=== PATIENT | male | born 1960 | race Caucasian/White ===

== ENCOUNTER 2020-04-07 17:16 | Inpatient (IN) | payer OTHER, SELFPAY ==
[~2020-04-07 17:16] MED LIST: Iopamidol-370 76% 500 ML 1 ML ONE
[2020-04-07 17:46] LABS: #Basophils 0.1 thou/uL (0.0-0.2); #Eosinphils 0.1 thou/uL (0.0-0.7); #Lymphocytes 1.2 thou/uL (1.20-3.40); #Monocytes 0.6 thou/uL (0.11-0.59); #Neutrophils 13.9 thou/uL (1.40-6.50); %Basophils 0.3 % (0.0-1.0); %Eosinophils 0.4 % (0.0-10.0); %Lymphocytes 7.6 % (21.0-51.0); %Neutrophils 87.7 % (42.0-75.0); Hemoglobin 11.7 g/dL (14.0-18.0); Mean Corpuscular HGB CONC 32.2 g/dL (32.0-36.0); Mean Corpuscular Hemoglobin 26.7 pg (27.0-31.0); Mean Corpuscular Volume 83.1 fL (78.0-98.0); Mean Platelet Volume 7.1 fL (7.4-10.4); Platelet Count 514 thou/uL (130-400); Red Blood Cell (RBC) Count 4.37 mill/uL (4.70-6.10); White Blood Cell (WBC) Count 15.8 thou/uL (4.8-10.8)
[2020-04-07 18:06] LABS: ALT (SGPT) 13 U/L (8-55); AST (SGOT) 7 U/L (5-34); Albumin 2.9 g/dL (3.5-5.0); Alkaline Phosphatase 150 U/L (40-110); Anion Gap 15 mmol/L (10-20); BUN (Urea Nitrogen) 7 mg/dL (8.4-25.7); Bilirubin, Total 0.3 mg/dL (0.2-1.2); Calc. Creatinine Clearance 0 mL/min (70-130); Calcium 8.1 mg/dL (7.8-10.44); Carbon Dioxide 26 mmol/L (22-29); Chloride 91 mmol/L (98-107); Estimated GFR-MDRD Greater than 90; Globulin 2.8 g/dL (2.4-3.5); Glucose 550 mg/dL (70-105); Protein, Total 5.7 g/dL (6.0-8.3); Sodium 129 mmol/L (136-145)
[2020-04-07 18:12] LABS: Potassium 2.8 mmol/L (3.5-5.1)
[2020-04-07] MEDS ORDERED: Potassium Chloride 20 MEQ TAB ONE (18:55)
[2020-04-07] MEDS ORDERED: D5 0.9% NS w/ 20 mEq KCl 1,000 ML IV SCH (19:30)
--- NOTE | 2020-04-07 19:56 | RAD ---
PORTABLE CHEST: 04/07/20 HISTORY: Right sided pain. Heart size is within normal limits. Mediastinal structures appear unremarkable. The lungs are clear o f any infiltrative process. IMPRESSION: No active intrathoracic disease. POS: OFF
[2020-04-07 21:02] LABS: Lactic Acid 1.1 mmol/L (0.5-2.2)
[2020-04-07] MEDS ORDERED: cloNIDine 0.1 MG TAB ONE (21:06)
[2020-04-07] MEDS ORDERED: Cefepime 2 GM VIAL ONE (21:06)
[2020-04-07] MEDS ORDERED: metroNIDAZOLE 500 MG/100 ML BAG ONE (21:15)
[2020-04-07] MEDS ORDERED: Morphine 4 MG/ML VIAL ONE (21:18)
[2020-04-07 21:22] LABS: Bacteria/HPF None Seen HPF (None Seen); Bilirubin Negative (Negative); Blood, Urine Negative (Negative); Clarity Clear (Clear); Glucose, Urine (Dipstick) Greater than 1000 mg/dL (Negative); Ketone, Urine Negative (Negative); Leukocyte Negative Leu/uL (Negative); Nitrite Negative (Negative); Protein, Urine (Dipstick) 30 mg/dL (Neg-Trace); RBC/HPF None Seen HPF (0-3); Specific Gravity, Urine 1.036 (1.002-1.036); Squamous Epithelial None Seen HPF (0-3); Urobilinogen Normal mg/dL (Less than 2); WBC/HPF None Seen HPF (0-3); pH, Urine 6.5 (5.0-9.0)
--- NOTE | 2020-04-07 21:53 | CT ---
CT ABDOMEN AND PELVIS PERFORMED WITH CONTRAST ENHANCEMENT: 04/07/20 HISTORY: Right lower quadrant pain. Lung bases are clear of infiltrates. The liver shows fatty change. The spleen is within normal limits of size. Pancreas is atrophic, parti cularly the body and tail region. The gallbladder has been removed. Right and left adrenal glands and right and left kidneys are normal in size. No significant periaorti c or mesenteric lymphadenopathy. Stomach is difficult to assess particularly the antrum region. This may just be related to underdistention. There is a very unusual small bowel pattern. Within some of the small bowel loops the oral contrast is along the periphery without enhancement of the central por tion. This just be some sort of uneven mixing; however, in addition there is small bowel fold promine nce and some areas where there does appear to be small bowel wall thickening. There is also a fairly prominent intussusception in the left upper abdomen. In addition to these findings, there is what jean pierre ears to be some bowel wall thickening of the right colon, although some of this may be stool. The tra nsverse colon is mildly distended with air without obvious bowel wall thickening but there is also wa ll thickening involving the splenic flexure region over a fairly long segment extending from the lombardi sverse colon into the proximal descending colon. No pneumatosis. The bowel is nondistended below this level. There is free fluid present within the abdomen. Some minimal fat stranding within the mesente kojo fat. The bladder is distended. No pelvic lymphadenopathy or mass. IMPRESSION: 1. Wall thickening of the colon. This definitively involves the splenic flexure regions, beginni ng within the transverse colon and extending into the proximal descending colon. This could indicate colitis. It also could be an indication of a mass in this region. There is also what is possibly thic kening to the right colon bowel wall but there is a considerable amount of unopacified stool which ma y be confusing this picture. 2. Abnormal small bowel pattern. There is a proximal intussusception more prominent than the typ ical transient intussusception but not associated with a great deal of obstruction. Unusual pattern o f the oral contrast and nonopacified intraluminal contents of the small bowel. This is probably relat ed to an uneven mixing of the oral contrast related to somewhat the patient has eaten. However, in ad dition, the small bowel folds are accentuated and there is areas of small bowel wall thickening. Two main entities to consider would be colitis for the changes within the colon versus mass and some type of enteritis in addition to the intussusception of the small bowel. These findings were discussed wi florentin Rg. 3. Atrophic pancreas. 4. Post cholecystectomy change. 5. Fatty liver. POS: OFF
[2020-04-07] MEDS ORDERED: Dextrose 5% in Water 1,000 ML IV PRN (22:10)
[2020-04-07] MEDS ORDERED: Dextrose 50% Abboject 50 ML SYRINGE SLOW IVP PRN (22:10)
[2020-04-07] MEDS ORDERED: Sodium Chloride 0.9% 1,000 ML IV SCH (22:15)
[2020-04-07 22:37] LABS: Hemoglobin A1c Greater than 14.0 % (4.0-6.0)
--- NOTE | 2020-04-07 23:01 | PDOC.EVN ---
Event Note - Event Note Event Note: [id number] HP dicated
[2020-04-08] MEDS: NS 0.9% w/ 20 MEQ KCL 1,000 ML/1,000 ML BAG IV SCH ×3 (00:29→14:27)
[2020-04-08] MEDS ORDERED: Ketorolac Tromethamine 30 MG/ML VIAL IVP SCH (00:45)
--- NOTE | 2020-04-08 02:00 | HP ---
CHIEF COMPLAINT: Abdominal pain. HISTORY OF PRESENT ILLNESS: Mr. To is a 59-year-old male with past medical history of diabetes mellitus, not on any medications, cigarette smoker, presents to the emergency room with abdominal pain that has been going on for some time treated with nausea, vomiting. The patient stated that he is diabetic, but he is not taking medications for diabetes. Workup in the emergency room, patient was found to be hypokalemic with a potassium of , hyperglycemic with a glucose of 550, anion gap is 15. On imaging studies, the patient was found to have a ? colonic mass, enteritis and ? intussusception. The patient was started on IV antibiotics, IV fluids, insulin, surgeon is being consulted. The patient is being admitted to hospital for further management. PAST MEDICAL HISTORY: 1. Diabetes mellitus. 2. Cigarette smoker. PAST SURGICAL HISTORY: Cholecystectomy. FAMILY HISTORY: Reviewed, noncontributory. SOCIAL HISTORY: The patient smokes about a pack a day. Denies drug abuse. FAMILY HISTORY: Reviewed and noncontributory. HOME MEDICATIONS: None. ALLERGIES: NO KNOWN ALLERGIES. REVIEW OF SYSTEMS: Review of 14 systems negative except what is mentioned in the history of present illness. PHYSICAL EXAMINATION: GENERAL: The patient is awake, alert, in moderate distress. VITAL SIGNS: Blood pressure is 140/80, heart rate is 90, respiratory rate is 14, temperature is 98.6. HEAD AND NECK: Normocephalic, atraumatic. NECK: Supple. No JVD. CHEST: Fair bilateral air entry. HEART: S1, S2. Regular. ABDOMEN: Soft, distended, tender. NEUROLOGIC: Awake, alert, oriented x3. No focal deficits. PSYCHIATRIC: Unable to assess. EXTREMITIES: No clubbing or cyanosis. LABORATORY DATA: WBC 15.8, hemoglobin 11.7, platelets 514. Sodium was 129, potassium 2.8, glucose of 550, BUN 7, creatinine 0.7, alkaline phosphatase 150. ASSESSMENT AND PLAN: 1. Acute abdominal pain. 2. Diabetes mellitus. 3. Hyperglycemia. 4. Colonic mass. 5. Enteritis? 6. Intussusception? 7. Cigarette smoker. 8. Weight loss. 9. Hypokalemia. PLAN: 1. Admit. 2. Keep n.p.o. 3. IV fluids. 4. Replace potassium. 5. Pain management. 6. Continue with antibiotics for now. 7. Surgeon consulted for evaluation and further management. 8. We will consult GI for evaluation and further recommendations. 9. Reconcile home medications. 10. DVT prophylaxis as appropriate. 11. Expected length of stay, 2 midnights or more. Job ID: [id number]
[2020-04-08] MEDS: Morphine 4 MG/ML VIAL SLOW IVP PRN ×3 (04:26→20:44)
[2020-04-08 05:55] LABS: #Basophils 0.1 thou/uL (0.0-0.2); #Eosinphils 0.2 thou/uL (0.0-0.7); #Lymphocytes 1.8 thou/uL (1.20-3.40); #Monocytes 0.8 thou/uL (0.11-0.59); #Neutrophils 12.4 thou/uL (1.40-6.50); %Basophils 0.4 % (0.0-1.0); %Eosinophils 1.2 % (0.0-10.0); %Lymphocytes 11.7 % (21.0-51.0); %Neutrophils 81.7 % (42.0-75.0); Hemoglobin 9.9 g/dL (14.0-18.0); Mean Corpuscular Hemoglobin 26.6 pg (27.0-31.0); Mean Corpuscular Volume 83.1 fL (78.0-98.0); Mean Platelet Volume 7.3 fL (7.4-10.4); Platelet Count 486 thou/uL (130-400); RBC Distribution Width 13.9 % (11.5-14.5); White Blood Cell (WBC) Count 15.1 thou/uL (4.8-10.8)
[2020-04-08] MEDS: metroNIDAZOLE 500 MG in Premix Bag 1 BAG IVPB SCH ×3 (05:57→22:09)
[2020-04-08] MEDS: Insulin Regular 300 UNITS/3 ML VIAL SC PRN ×2 (06:00→17:06)
[2020-04-08 06:18] LABS: ALT (SGPT) 12 U/L (8-55); AST (SGOT) 13 U/L (5-34); Albumin 2.4 g/dL (3.5-5.0); Alkaline Phosphatase 117 U/L (40-110); Anion Gap 11 mmol/L (10-20); BUN (Urea Nitrogen) 9 mg/dL (8.4-25.7); Bilirubin, Total 0.2 mg/dL (0.2-1.2); Calc. Creatinine Clearance 99 mL/min (70-130); Calcium 7.2 mg/dL (7.8-10.44); Carbon Dioxide 23 mmol/L (22-29); Chloride 100 mmol/L (98-107); Estimated GFR-MDRD Greater than 90; Globulin 2.4 g/dL (2.4-3.5); Glucose 327 mg/dL (70-105); Potassium 3.6 mmol/L (3.5-5.1); Protein, Total 4.8 g/dL (6.0-8.3); Sodium 130 mmol/L (136-145)
[2020-04-08] MEDS: Cefepime 1 GM in Sodium Chloride 0.9% 100 ML IVPB SCH ×2 (08:01→20:37)
[2020-04-08] MEDS: Famotidine/PF 20 mg/2ml Vial SLOW IVP SCH ×2 (08:02→20:38)
[2020-04-08] MEDS ORDERED: FLU VACC QS2020-21(6MOS UP)/PF 60 MCG/0.5 ML SYRINGE IM ONE (09:00)
--- NOTE | 2020-04-08 11:14 | RAD ---
XR Abdomen 1 View/KUB History: Evaluate for contrast progression Comparison: CT prior day Findings: Contrast appears to transit into the colon and rectum. There continue be dilated loops of b owel including large and small bowel. Impression: Progressive contrast transit into the colon with concern for splenic flexure mass. Colono scopy evaluation recommended.
--- NOTE | 2020-04-08 11:22 | PDOC.GSCN ---
Surgery Consult: HPI - Consult details Date: 04/08/20 Time: 11:20 History of present illness: 04/08/20 11:20 Chief complaint-my abdomen hurts History of present illness-the patient is a 59-year-old male who presents to the emergency room with worsening abdominal pain. This is mostly located on the right-hand side and is crampy in nature. The cramping has become more constant. This is been going on for approximately the last 2 weeks. Pain can get up to 7 out of 10. No radiation necessarily. He feels like he needs to grab the side of his abdomen in order to get out of bed. He has had some occasional nausea that has been progressive lately. He is still eating. Still passing flatus and having bowel movements. No blood in his stool. Patient d enies ever having a colonoscopy before. He endorses a 50 pound weight loss over the last 2 years. Initially, secondary to his diabetes, he was happy that he was losing weight. More recently, his friends and family were becoming concerned about his weight loss. He did not seek evaluation. No change in the caliber of his stool. Surgery Consult: ROS - Review of Systems ROS unobtainable: other (Negative for 10 system, two-point per system other than HPI) Surgery Consult: [facility] Past Medical History: Denies Past Surgical History: Cholecystectomy - Past Family History Pertinent family history: Patient denies any Crohn's or UC. No colon cancer that he knows of - Past Social History Smoking Status: Current every day smoker (1 pack/day) Alcohol Use: rarely Drug Use History: none Surgery Consult: Exam - Vital signs Vital signs: Vital Signs - Most Recent Temp Pulse Resp BP Pulse Ox 98.7 F 94 18 105/70 97 04/08/20 07:31 04/08/20 07:31 04/08/20 07:31 04/08/20 07:31 04/08/20 08:00 - Physical Exam Additional exam: General-cachectic, chronically ill Head-[normocephalic, atraumatic] HEENT- [EOMI], [PERRLA] Neck-[trachea midline, supple] Lungs-[grossly clear to auscultation], [normal air movement] Heart-[regular regular], [no murmurs] Abdomen-[soft], some distention, [nontender], [normal active bowel sounds], some tympany without peritoneal signs Musculosketal-[full range of motion], [no gross deformity], wasted Psychiatric-[good insight, good judgment] Skin-[good turgor, no jaundice] Neuro- [GCS 15], [CN II-XII intact] Surgery Consult: Meds - Medications Medications: Current Medications Dextrose/Water (Dextrose 50% Abboject 50 Ml Syringe) 25 gm SLOW IVP PRN PRN PRN Reason: Hypoglycemia Famotidine (Famotidine/Pf 20 Mg/2ml Vial) 20 mg SLOW IVP Q12HR [facility] Last Admin: 04/08/20 08:02 Dose: 20 mg Documented by: Glucagon (Glucagon 1 Mg/Ml Vial) 1 mg IM PRN PRN PRN Reason: Hypoglycemia Dextrose/Water (D5w) 1,000 mls @ 0 mls/hr IV .Q0M PRN PRN Reason: Hypoglycemia Potassium Chloride/Sodium Chloride (Ns 0.9% W/ 20 Meq Kcl) 1,000 ml in 1,000 mls @ 125 mls/hr IV .Q8H [facility] Last Admin: 04/08/20 07:58 Dose: 1,000 mls Documented by: Cefepime HCl 1 gm/ Sodium (Chloride) 100 mls @ 200 mls/hr IVPB Q12HR [facility] Last Admin: 04/08/20 08:01 Dose: 100 mls Documented by: Metronidazole 500 mg/ Device 100 mls @ 100 mls/hr IVPB Q8HR [facility] Last Admin: 04/08/20 05:57 Dose: 100 mls Documented by: Insulin Human Regular (Insulin Regular 300 Units/3 Ml Vial) 0 units SC .MODERATE SLIDING SC PRN PRN Reason: Moderate Correctional Scale Last Admin: 04/08/20 06:00 Dose: 8 unit Documented by: Morphine Sulfate (Morphine 4 Mg/Ml Vial) 4 mg SLOW IVP Q4H PRN PRN Reason: Severe Pain (7-10) Last Admin: 04/08/20 04:26 Dose: 4 mg Documented by: - Allergies Allergies/Adverse Reactions: Allergies Allergy/AdvReac Type Severity Reaction Status Date / Time No Known Drug Allergies Allergy Verified 04/08/20 01:44 Surgery Consult: Results - Labs Result Diagrams: 04/08/20 05:34 04/08/20 05:34 Lab results: Laboratory Results WBC 15.1 thou/uL (4.8-10.8) H 04/08/20 05:34 RBC 3.70 mill/uL (4.70-6.10) L 04/08/20 05:34 Hgb 9.9 g/dL (14.0-18.0) L 04/08/20 05:34 Hct 30.8 % (42.0-52.0) L 04/08/20 05:34 MCV 83.1 fL (78.0-98.0) 04/08/20 05:34 MCH 26.6 pg (27.0-31.0) L 04/08/20 05:34 MCHC 32.0 g/dL (32.0-36.0) 04/08/20 05:34 RDW 13.9 % (11.5-14.5) 04/08/20 05:34 Plt Count 486 thou/uL (130-400) H 04/08/20 05:34 MPV 7.3 fL (7.4-10.4) L 04/08/20 05:34 Neutrophils % 81.7 % (42.0-75.0) H 04/08/20 05:34 Lymphocytes % 11.7 % (21.0-51.0) L 04/08/20 05:34 Monocytes % 5.0 % (0.0-10.0) 04/08/20 05:34 Eosinophils % 1.2 % (0.0-10.0) 04/08/20 05:34 Basophils % 0.4 % (0.0-1.0) 04/08/20 05:34 Neutrophils # 12.4 thou/uL (1.40-6.50) H 04/08/20 05:34 Lymphocytes # 1.8 thou/uL (1.20-3.40) 04/08/20 05:34 Monocytes # 0.8 thou/uL (0.11-0.59) H 04/08/20 05:34 Eosinophils # 0.2 thou/uL (0.0-0.7) 04/08/20 05:34 Basophils # 0.1 thou/uL (0.0-0.2) 04/08/20 05:34 Sodium 130 mmol/L (136-145) L 04/08/20 05:34 Potassium 3.6 mmol/L (3.5-5.1) 04/08/20 05:34 Chloride 100 mmol/L (98-107) 04/08/20 05:34 Carbon Dioxide 23 mmol/L (22-29) 04/08/20 05:34 Anion Gap 11 mmol/L (10-20) 04/08/20 05:34 BUN 9 mg/dL (8.4-25.7) 04/08/20 05:34 Creatinine 0.63 mg/dL (0.7-1.3) L 04/08/20 05:34 Estimated GFR (MDRD) Greater than 90 04/08/20 05:34 Glucose 327 mg/dL (70-105) H 04/08/20 05:34 POC Glucose 167 mg/dL (70-100) H 04/08/20 09:08 Hemoglobin A1c Greater than 14.0 % (4.0-6.0) H 04/07/20 17:39 Lactic Acid 1.1 mmol/L (0.5-2.2) 04/07/20 20:39 Calcium 7.2 mg/dL (7.8-10.44) L 04/08/20 05:34 Total Bilirubin 0.2 mg/dL (0.2-1.2) 04/08/20 05:34 AST 13 U/L (5-34) 04/08/20 05:34 ALT 12 U/L (8-55) 04/08/20 05:34 Alkaline Phosphatase 117 U/L (40-110) H 04/08/20 05:34 Serum Total Protein 4.8 g/dL (6.0-8.3) L 04/08/20 05:34 Albumin 2.4 g/dL (3.5-5.0) L 04/08/20 05:34 Globulin 2.4 g/dL (2.4-3.5) 04/08/20 05:34 Albumin/Globulin Ratio 1.0 g/dL (1.2-2.2) L 04/08/20 05:34 Urine Color Light-Yellow (Yellow) 04/07/20 20:50 Urine Clarity Clear (Clear) 04/07/20 20:50 Urine pH 6.5 (5.0-9.0) 04/07/20 20:50 Ur Specific Goodrich 1.036 (1.002-1.036) 04/07/20 20:50 Urine Protein 30 mg/dL (Neg-Trace) A 04/07/20 20:50 Urine Glucose (UA) Greater than 1000 mg/dL (Negative) A 04/07/20 20:50 Urine Ketones Negative mg/dL (Negative) 04/07/20 20:50 Urine Blood Negative (Negative) 04/07/20 20:50 Urine Nitrite Negative (Negative) 04/07/20 20:50 Urine Bilirubin Negative (Negative) 04/07/20 20:50 Urine Urobilinogen Normal mg/dL (Less than 2) 04/07/20 20:50 Ur Leukocyte Esterase Negative Maryam/uL (Negative) 04/07/20 20:50 Urine RBC None Seen HPF (0-3) 04/07/20 20:50 Urine WBC None Seen HPF (0-3) 04/07/20 20:50 Ur Squamous Epith Cells None Seen HPF (0-3) 04/07/20 20:50 Urine Bacteria None Seen HPF (None Seen) 04/07/20 20:50 - Radiology Interpretation Other Additional comments: Independently viewed the images of the CT scan as well as the plain film from this morning. CT scan is most concerning for a probable mass at the splenic flexure. The colon proximal to that is dilated. There is also concern of intussusception. Plain film demonstrates passage of contrast into the colon and through the area of concern Surgery Consult: A/P - Problem (1) Colonic mass Current Visit: Yes Code(s): K63.89 - OTHER SPECIFIED DISEASES OF INTESTINE Status: Acute Assessment and Plan: I spoke with Dr. Matthews from gastroenterology today. Given the way that preprocedural Covid test that is going, it will probably be Friday before colonoscopy can be performed. The patient does not obstructed at this point. Unfortunately, given his cachectic nature and 50 pound weight loss over the last 2 years, this is more than likely a malignancy. He has never had a colonoscopy before. It would be nice to differentiate this from enteritis as the patient does have a slightly elevated white blood cell count. I will order a CEA of 1 h as not already been ordered. No evidence of hepatic lesions (2) Diabetes Current Visit: Yes Code(s): E11.9 - TYPE 2 DIABETES MELLITUS WITHOUT COMPLICATIONS Status: Acute Assessment and Plan: Patient is not on medications. Blood glucose was elevated at presentation. Could be a reason for weight loss, but more likely from a colon malignancy. Management per hospitalist service (3) Weight loss Current Visit: Yes Status: Acute Assessment and Plan: 50 pound weight loss in the last 2 years. More than likely related to malignancy. I will order a prealbumin of 1 has not been ordered (4) Tobacco use Current Visit: Yes Code(s): Z72.0 - TOBACCO USE Status: Acute Assessment and Plan: Everyday smoker. This will increase his risk of cardiopulmonary issues if surgery is needed
--- NOTE | 2020-04-08 13:02 | CON ---
DATE OF CONSULTATION: 04/08/2020 CHIEF COMPLAINT: Weakness and abdominal pain. HISTORY OF PRESENT ILLNESS: Mr. To is a 59-year-old man who has had gradual weakness and abdominal discomfort progressively over the last 2 years, which has worsened over the last couple of weeks. He has some diffuse to right lower quadrant aching and abdominal pain, which is fairly constant again over a period of months at least. He has had progressive weight loss over the last 2 years of 50 pounds. He also quit taking any medications for his diabetes a couple years ago. He has not been on any medications lately other than some intermittent ibuprofen or acetaminophen for joint pain. He had no nausea or vomiting. He has had small formed stools daily. No blood in the stool. No diarrhea or constipation. PAST MEDICAL HISTORY: Diabetes mellitus, which has been untreated of the last couple years. He was on metformin prior to that, but was told that it had quit working. He quit following up with physicians about his diabetes after that. PAST SURGICAL HISTORY: Cholecystectomy. FAMILY HISTORY: His brother had brain cancer. His mom had tonsil cancer. SOCIAL HISTORY: He smokes a pack a day. No drugs or alcohol. ALLERGIES: NO KNOWN DRUG ALLERGIES. OUTPATIENT MEDICATIONS: None. REVIEW OF SYSTEMS: Positive for weakness and otherwise negative x10 systems reviewed except as stated in history of present illness. PHYSICAL EXAMINATION: VITAL SIGNS: Temperature 98.7, pulse 94, blood pressure 105/70. GENERAL: He is in no acute distress. Alert and oriented x3. He has significant muscle wasting. HEENT: His eyes have no scleral icterus. Oropharynx is clear without lesions. No cervical or supraclavicular lymphadenopathy. LUNGS: Clear to auscultation bilaterally. HEART: Regular rate and rhythm without murmur. ABDOMEN: Soft. Mild tenderness in the right abdomen without guarding. Bowel sounds are present. His abdomen is mildly distended. EXTREMITIES: No lower extremity edema. LABORATORY DATA: White blood cell count 15.1, hemoglobin 9.9, platelets 486. Creatinine 0.63, glucose 327, bilirubin 0.2. AST 13, ALT 12, alkaline phosphatase 117. Albumin 2.4. His sodium is 136. IMAGING: CT scan of the abdomen and pelvis was performed which shows wall thickening of the colon around the transverse to the proximal descending. Pancreas was atrophic and fatty liver was noted. IMPRESSION: 1. Abnormal CT scan of the abdomen and pelvis showing thickening of the colon around the splenic flexure. Given his muscle wasting and weight loss and abdominal pain, colon cancer is suspected. Ischemic colitis in this area is possible given the location of the CT findings, however, he has had no diarrhea or blood in stool and his pain has been more right sided. I would favor malignancies as more likely possibility. 2. Weight loss. Most likely due to a neoplastic process, however, his untreated diabetes is also a possible etiology. 3. Anemia with low normal MCV. 4. Untreated diabetes mellitus with a hemoglobin A1c over 14. RECOMMENDATIONS: 1. Nasal COVID swab. This will not be expected to be back until tomorrow afternoon. 2. We will plan for a bowel prep tomorrow and colonoscopy on Friday as the COVID test will not be back by tomorrow early time period. 3. Check iron studies. Job ID: [id number]
[2020-04-08 13:20] LABS: Iron 21 ug/dL (65-175); Iron Binding Capacity, Total 196 mcg/dL (261-462)
[2020-04-08 16:29] LABS: SARS-CoV-2 MS2 Positive; SARS-CoV-2 N Gene Negative; SARS-CoV-2 S Gene Negative; SARS-CoV-2 by NAA Not Detected (NotDetected); SARS-CoV-2 orf1ab Negative
--- NOTE | 2020-04-08 17:37 | PDOC.HOSPP ---
- Subjective Encounter Date: 04/08/20 Encounter Time: 17:35 Subjective: Mr. To was seen today in follow-up of abdominal pain, and weight loss. He says he was able to rest last night for the first time in days. He notes severe abdominal pain when he tries to lay down. He was able to keep some yogurt and potato soup down. - Objective Vital Signs & Weight: Vital Signs (12 hours) Temp Pulse Resp BP Pulse Ox 04/08/20 13:12 98.2 F 93 18 118/74 100 04/08/20 08:00 97 04/08/20 07:31 98.7 F 94 18 105/70 97 Weight Admit Weight 122 lb 3.2 oz Weight 122 lb 3.2 oz I&O: 04/07/20 04/08/20 04/09/20 06:59 06:59 06:59 Intake Total 925 Balance 925 Result Diagrams: 04/08/20 05:34 04/08/20 05:34 Additional Labs: Accuchecks 04/08/20 04/08/20 04/08/20 16:47 11:56 09:08 POC Glucose 229 H 92 167 H 04/08/20 04/08/20 04/08/20 04:39 00:44 00:44 POC Glucose 330 H 377 H 377 H Hospitalist ROS - Medication Medications: Active Medications Generic Name Dose Route Start Last Admin Trade Name Freq PRN Reason Stop Dose Admin Famotidine 20 mg 04/08/20 09:00 04/08/20 08:02 Famotidine/Pf 20 Mg/2ml Vial SLOW IVP 20 mg Q12HR PRINCE Administration Potassium Chloride/Sodium Chloride 1,000 ml in 1,000 mls @ 125 mls/hr 04/07/20 22:30 04/08/20 14:27 Ns 0.9% W/ 20 Meq Kcl IV 1,000 mls .Q8H PRINCE Administration Cefepime HCl 1 gm/ Sodium 100 mls @ 200 mls/hr 04/08/20 09:00 04/08/20 08:01 Chloride IVPB 100 mls Q12HR PRINCE Administration Metronidazole 500 mg/ Device 100 mls @ 100 mls/hr 04/08/20 06:00 04/08/20 14:27 IVPB 100 mls Q8HR PRINCE Administration Insulin Human Regular 0 units 04/07/20 22:10 04/08/20 17:06 Insulin Regular 300 Units/3 Ml Vial SC 4 unit .MODERATE SLIDING SC PRN Administration Moderate Correctional Scale Morphine Sulfate 4 mg 04/07/20 23:53 04/08/20 14:26 Morphine 4 Mg/Ml Vial SLOW IVP 4 mg Q4H PRN Administration Severe Pain (7-10) - Exam General Appearance: NAD, ill appearing General - other findings: Cachectic Eye: PERRL, anicteric sclera Heart: RRR, no murmur, no gallops, no rubs, normal peripheral pulses Respiratory: CTAB, no wheezes, no rales, no ronchi, normal chest expansion, no tachypnea, normal percussion Gastrointestinal: soft, non-distended, normal bowel sounds, no palpable masses, no hepatomegaly, tender to palpation (+ diffuse tenderness) Extremities: no cyanosis, no edema Hosp A/P (1) Colonic mass Code(s): K63.89 - OTHER SPECIFIED DISEASES OF INTESTINE Status: Acute (2) Diabetes Code(s): E11.9 - TYPE 2 DIABETES MELLITUS WITHOUT COMPLICATIONS Status: Acute (3) Tobacco use Code(s): Z72.0 - TOBACCO USE Status: Chronic (4) Weight loss Status: Chronic - Plan * Abdominal pain- CT findings noted, area suspicious for intussception and bowel wall thickening * Plan is for Colonoscopy on Friday * Weight loss- with moderate protein calorie malnutrition * DM- continue clear liquids and SSI
[2020-04-09] MEDS: NS 0.9% w/ 20 MEQ KCL 1,000 ML/1,000 ML BAG IV SCH ×3 (03:56→13:44)
[2020-04-09] MEDS: Morphine 4 MG/ML VIAL SLOW IVP PRN ×4 (04:00→20:41)
[2020-04-09] MEDS: Insulin Regular 300 UNITS/3 ML VIAL SC PRN ×2 (04:06→11:00)
[2020-04-09] MEDS: metroNIDAZOLE 500 MG in Premix Bag 1 BAG IVPB SCH ×3 (05:57→22:08)
[2020-04-09] MEDS: Cefepime 1 GM in Sodium Chloride 0.9% 100 ML IVPB SCH ×2 (08:34→20:37)
[2020-04-09] MEDS: Famotidine/PF 20 mg/2ml Vial SLOW IVP SCH ×2 (08:35→20:37)
--- NOTE | 2020-04-09 11:54 | PDOC.HOSPP ---
- Subjective Encounter Date: 04/09/20 Encounter Time: 11:52 Subjective: Mr. To was seen today in follow-up of weight loss and abdominal pain. He says his pain has not been adequately controlled. The current dose of Morphine does not eliminate the pain. - Objective Vital Signs & Weight: Vital Signs (12 hours) Temp Pulse Resp BP Pulse Ox 04/09/20 11:31 98.5 F 86 14 134/87 99 04/09/20 08:00 98.2 F 88 12 108/67 99 04/09/20 00:10 98.7 F 93 16 121/69 99 Weight Admit Weight 122 lb 3.2 oz Weight 122 lb 3.2 oz I&O: 04/08/20 04/09/20 04/10/20 06:59 06:59 06:59 Intake Total 5245 Balance 5245 Result Diagrams: 04/08/20 05:34 04/08/20 05:34 Additional Labs: Accuchecks 04/09/20 04/09/20 04/09/20 10:38 08:51 04:10 POC Glucose 295 H 133 H 181 H 04/09/20 04/08/20 04/08/20 00:52 20:42 16:47 POC Glucose 161 H 284 H 229 H 04/08/20 04/08/20 11:56 00:44 POC Glucose 92 377 H Hospitalist ROS - Medication Medications: Active Medications Generic Name Dose Route Start Last Admin Trade Name Freq PRN Reason Stop Dose Admin Famotidine 20 mg 04/08/20 09:00 04/09/20 08:35 Famotidine/Pf 20 Mg/2ml Vial SLOW IVP 20 mg Q12HR [facility] Administration Potassium Chloride/Sodium Chloride 1,000 ml in 1,000 mls @ 125 mls/hr 04/07/20 22:30 04/09/20 11:48 Ns 0.9% W/ 20 Meq Kcl IV Not Given .Q8H PRINCE Cefepime HCl 1 gm/ Sodium 100 mls @ 200 mls/hr 04/08/20 09:00 04/09/20 08:34 Chloride IVPB 100 mls Q12HR PRINCE Administration Metronidazole 500 mg/ Device 100 mls @ 100 mls/hr 04/08/20 06:00 04/09/20 05:57 IVPB 100 mls Q8HR PRINCE Administration Insulin Human Regular 0 units 04/07/20 22:10 04/09/20 11:00 Insulin Regular 300 Units/3 Ml Vial SC 6 unit .MODERATE SLIDING SC PRN Administration Moderate Correctional Scale - Exam General Appearance: NAD, ill appearing General - other findings: cachectic Eye: PERRL, anicteric sclera Heart: RRR, no murmur, no gallops, no rubs, normal peripheral pulses Respiratory: CTAB, no wheezes, no rales, no ronchi, normal chest expansion Gastrointestinal: soft, non-tender, non-distended, normal bowel sounds, no palpable masses, no hepatomegaly Extremities: no cyanosis, no edema Hosp A/P (1) Colonic mass Code(s): K63.89 - OTHER SPECIFIED DISEASES OF INTESTINE Status: Acute (2) Diabetes Code(s): E11.9 - TYPE 2 DIABETES MELLITUS WITHOUT COMPLICATIONS Status: Acute (3) Tobacco use Code(s): Z72.0 - TOBACCO USE Status: Chronic (4) Weight loss Status: Chronic - Plan * Abdominal pain- CT findings noted, area suspicious for intussception and bowel wall thickening * He continues to have fairly severe pain. He was not able to rest- will adjust his medication regimen, and once the colonoscopy is complete- can switch to MS- Contin or a Fentanyl patch * Weight loss- with moderate protein calorie malnutrition * DM- continue clear liquids and SSI
[2020-04-09] MEDS ORDERED: Morphine 4 MG/ML VIAL SLOW IVP SCH (12:00)
--- NOTE | 2020-04-09 16:32 | PDOC.GSPN ---
Surgery Progress Note: Subj - Subjective Narrative: Chief complaint-still having some crampy pain History of present illness-the patient is hospital day 2 for a splenic flexure abnormality. He has a history of weeks of increasing crampy abdominal pain. He states he is still passing flatus. Still having bowel movements. He is ambulating. His pain is still well localized. Mostly on the right side of the abdomen. Can get up to 6 out of 10. Crampy. Nonradiating. Review of systems negative for 10 system, two-point per system other than HPI Surgery Progress Note: Obj - Vital signs Vital signs: Vital Signs - Most Recent Temp Pulse Resp BP Pulse Ox 98.5 F 86 14 134/87 99 04/09/20 11:31 04/09/20 11:31 04/09/20 11:31 04/09/20 11:31 04/09/20 11:31 - Physical Exam Additional exam: General-cachectic, no acute distress Head-[normocephalic, atraumatic] HEENT- [EOMI], [PERRLA] Neck-[trachea midline, supple] Lungs-[grossly clear to auscultation], [normal air movement] Heart-[regular regular], [no murmurs] Abdomen-[soft], mildly distended, minimal tenderness to deep palpation, [normal active bowel sounds] Musculosketal-wasted extremities, [no gross deformity] Psychiatric-[good insight, good judgment] Skin-[good turgor, no jaundice] Neuro- [GCS 15], [CN II-XII intact] Surgery Progress Note: Results - Labs Result Diagrams: 04/08/20 05:34 04/08/20 05:34 Lab results: Laboratory Results - last 12 hr 04/09/20 04/09/20 08:51 10:38 POC Glucose 133 H 295 H - Radiology Interpretation Other Additional comments: Independently viewed the images of the CT scan as well as the plain film from this morning. CT scan is most concerning for a probable mass at the splenic flexure. The colon proximal to that is dilated. There is also concern of intussusception. Plain film demonstrates passage of contrast into the colon and through the area of concern Surgery Progress Note: A/P - Problem (1) Colonic mass Current Visit: Yes Code(s): K63.89 - OTHER SPECIFIED DISEASES OF INTESTINE Status: Acute Assessment and Plan: CEA was normal. I explained to the patient that this does not mean he does not have colon cancer. His prealbumin is low. Unfortunately, he is on a clear liquid diet preparing for his bowel prep tonight for his colonoscopy tomorrow. It does not sound like he is obstructed at this point. We discussed that surgical intervention will be based on the colonoscopy findings. He understands that he will be switched over to a different surgeon tomorrow as I rotate off call. (2) Diabetes Current Visit: Yes Code(s): E11.9 - TYPE 2 DIABETES MELLITUS WITHOUT COMPLIC ATIONS Status: Acute Assessment and Plan: Glucoses are improving. Continue glucose control as this is important for reduction of surgical site infections and perioperative complications (3) Weight loss Current Visit: Yes Status: Chronic (4) Tobacco use Current Visit: Yes Code(s): Z72.0 - TOBACCO USE Status: Chronic
[2020-04-09] MEDS ORDERED: GoLYTELY 4,000 ml Bottle PO SCH (17:00)
--- NOTE | 2020-04-09 18:11 | PRG ---
DATE OF SERVICE: 04/09/2020 SUBJECTIVE: Mr. To has no acute complaints today. He is tolerating his clear liquid diet well. OBJECTIVE: VITAL SIGNS: Temperature 98.5, pulse 86, and blood pressure 134/87. GENERAL: He is in no acute distress. Alert and oriented x3. ABDOMEN: Tenderness in the right lower quadrant without guarding. Bowel sounds are present. EXTREMITIES: 1+ pitting lower extremity edema. IMPRESSION: 1. Possible colon mass at splenic flexure by CT. 2. Weight loss. 3. Anemia of chronic disease. 4. Untreated diabetes mellitus. PLAN: He is on the schedule for colonoscopy for tomorrow. Job ID: [id number]
[2020-04-10] MEDS: NS 0.9% w/ 20 MEQ KCL 1,000 ML/1,000 ML BAG IV SCH ×3 (00:16→18:02)
[2020-04-10] MEDS: Morphine 4 MG/ML VIAL SLOW IVP PRN ×3 (00:16→21:46)
[2020-04-10] MEDS: metroNIDAZOLE 500 MG in Premix Bag 1 BAG IVPB SCH ×3 (05:46→21:20)
[2020-04-10] MEDS ORDERED: PROPOFOL 200 MG/20 ML VIAL ONE (09:25)
[2020-04-10] MEDS ORDERED: CEFAZOLIN 1 GM VIAL ONE (09:26)
[2020-04-10] MEDS: Cefepime 1 GM in Sodium Chloride 0.9% 100 ML IVPB SCH ×2 (10:04→21:19)
[2020-04-10] MEDS: Famotidine/PF 20 mg/2ml Vial SLOW IVP SCH ×2 (10:05→21:16)
--- NOTE | 2020-04-10 12:48 | OP ---
DATE OF PROCEDURE: 04/10/2020 WORM RAISER SURGEON: None. PROCEDURES PERFORMED: Colonoscopy with biopsies and snare polypectomy. INDICATIONS: 1. Abnormal weight loss. 2. Right-sided abdominal pain. 3. Abnormal CT scan, showing colon thickening of the splenic flexure, suggestive of possible malignancy. 4. The patient has never had a colonoscopy in the past. MEDICATIONS: See Anesthesia record. FINDINGS: After discussion of the risks, benefits, and alternatives of the procedure, informed consent was obtained and witnessed. Pre-endoscopic cardiopulmonary examination was satisfactory. Time-out was performed before sedation was achieved. Sedation was achieved with Anesthesia assistance in the endoscopy unit. Digital rectal exam was performed, which was unremarkable. A Pentax adult colonoscope was inserted into the anus and passed forward in the usual fashion. The endoscope was passed forward to a distance of 40 cm from the anal verge. At this point, there was a large circumferential near obstructing mass, which was multilobulated with several areas of friability and shallow ulceration. This was nearly obstructing as I was unable to advance the colonoscope more proximal to the mass. Biopsies were obtained. I injected 3 mL of submucosal tattoo ink just distal to the lesion. The colonoscope was then slowly withdrawn in a gradual and circumferential manner with careful examination of the distal colonic mucosa. Examination of this segment of the colon was adequate. In the rectum, there was a 7-mm sessile polyp. This was completely removed with hot snare and retrieved for pathology. Retroflexion in the rectum demonstrated small internal hemorrhoids. The colonoscope was completely withdrawn and the patient allowed to recover. The patient tolerated the procedure well. There were no immediate postprocedure complications. IMPRESSION: 1. Near-obstructing circumferential mass at 40 cm, likely malignant. Biopsied. Tattooed distal to the lesion. 2. Unable to advance the endoscope more proximal than 40 cm. 3. 7-mm rectal polyp, hot snared and retrieved. 4. Internal hemorrhoids. RECOMMENDATIONS: 1. Follow up pathology on the biopsies. 2. General Surgery is already following. I have notified Dr. Westfall of the findings. The patient will need resection, and I anticipate likely Oncology consultation once malignancy is confirmed on histology. 3. Colonoscopy will need to be repeated at 1-year interval. Please call back anytime with questions or concerns. Job ID: [id number]
[2020-04-10] MEDS: Insulin Regular 300 UNITS/3 ML VIAL SC PRN ×2 (14:36→18:30)
--- NOTE | 2020-04-10 15:27 | PDOC.FMACP ---
Advance Care Planning - Problem (1) Palliative care encounter Status: Acute Code(s): Z51.5 - ENCOUNTER FOR PALLIATIVE CARE (2) Colonic mass Status: Acute Code(s): K63.89 - OTHER SPECIFIED DISEASES OF INTESTINE (3) Diabetes Status: Acute Code(s): E11.9 - TYPE 2 DIABETES MELLITUS WITHOUT COMPLICATIONS - Note Participants: patient, family, palliative care Summary: Palliative Care addressed Advanced Care Planning. The diagnosis, prognosis and goals of care were discussed. Appropriate forms and documentation to accomplish the goals of care were discussed. All questions were answered. Mr To elected to complete an MPOA as well as Directive to Physician. Original and copies were given to patient as well as copies placed on patient chart for medical records. Please also refer to Palliative Care notes in note section. Time Spent (mins): 15
[2020-04-10] MEDS ORDERED: Naloxone HCl 0.4 mg/ml Vial IV PRN (16:10)
--- NOTE | 2020-04-10 16:10 | PDOC.HOSPP ---
- Subjective Encounter Date: 04/10/20 Encounter Time: 16:07 Subjective: Mr. To was seen today in follow-up of colon mass. He continues to have some pain, but admits it is a little better today than yesterday. - Objective Vital Signs & Weight: Vital Signs (12 hours) Temp Pulse Resp BP Pulse Ox 04/10/20 15:48 97.6 F 78 18 123/85 93 L 04/10/20 08:00 96 04/10/20 07:12 98.5 F 92 20 118/75 96 Weight Admit Weight 122 lb 3.2 oz Weight 122 lb 3.2 oz I&O: 04/09/20 04/10/20 04/11/20 06:59 06:59 06:59 Intake Total 5245 2900 Balance 5245 2900 Result Diagrams: 04/08/20 05:34 04/08/20 05:34 Additional Labs: Accuchecks 04/10/20 04/10/20 04/10/20 15:51 13:42 04:12 POC Glucose 340 H 307 H 169 H 04/10/20 04/09/20 04/09/20 00:14 20:11 16:42 POC Glucose 222 H 214 H 113 H Hospitalist ROS - Medication Medications: Active Medications Generic Name Dose Route Start Last Admin Trade Name Freq PRN Reason Stop Dose Admin Famotidine 20 mg 04/08/20 09:00 04/10/20 10:05 Famotidine/Pf 20 Mg/2ml Vial SLOW IVP 20 mg Q12HR PRINCE Administration Potassium Chloride/Sodium Chloride 1,000 ml in 1,000 mls @ 125 mls/hr 04/07/20 22:30 04/10/20 07:21 Ns 0.9% W/ 20 Meq Kcl IV Not Given .Q8H PRINCE Cefepime HCl 1 gm/ Sodium 100 mls @ 200 mls/hr 04/08/20 09:00 04/10/20 10:04 Chloride IVPB 100 mls Q12HR PRINCE Administration Metronidazole 500 mg/ Device 100 mls @ 100 mls/hr 04/08/20 06:00 04/10/20 14:35 IVPB 100 mls Q8HR PRINCE Administration Insulin Human Regular 0 units 04/07/20 22:10 04/10/20 14:36 Insulin Regular 300 Units/3 Ml Vial SC 8 unit .MODERATE SLIDING SC PRN Administration Moderate Correctional Scale Morphine Sulfate 4 mg 04/09/20 11:52 04/10/20 14:32 Morphine 4 Mg/Ml Vial SLOW IVP 4 mg Q3HR PRN Administration Severe Pain (7-10) - Exam Eye: PERRL, anicteric sclera Respiratory: CTAB, no wheezes, no rales, no ronchi, normal chest expansion, no tachypnea, normal percussion Gastrointestinal: soft, non-distended, normal bowel sounds, no palpable masses, no hepatomegaly, tender to palpation Extremities: no cyanosis, no edema Hosp A/P (1) Colonic mass Code(s): K63.89 - OTHER SPECIFIED DISEASES OF INTESTINE Status: Acute (2) Diabetes Code(s): E11.9 - TYPE 2 DIABETES MELLITUS WITHOUT COMPLICATIONS Status: Acute (3) Tobacco use Code(s): Z72.0 - TOBACCO USE Status: Chronic (4) Weight loss Status: Chronic - Plan * Abdominal pain- Colonoscopy findings noted- he has a large mass at about 40cm, which has almost complete obstruction of the bowel lumen. * Surgery has been consulted * Will start a Fentanyl Patch today, and continue Morphine IV for breakthrough pain * Weight loss- with moderate protein calorie malnutrition * DM- continue clear liquids and SSI
[2020-04-10] MEDS: Lorazepam 2 MG/ML VIAL SLOW IVP PRN (18:23)
[2020-04-10 18:50] LABS: PTT 23.1 sec (22.9-36.1); Prothrombin Time 13.7 sec (12.0-14.7)
[2020-04-10] MEDS ORDERED: cefOXitin 2 GM in Sodium Chloride 0.9% 100 ML IVPB SCH (19:15)
--- NOTE | 2020-04-10 19:46 | PRG ---
DATE OF SERVICE: 04/10/2020 SUBJECTIVE: Mr. To is a 59-year-old man with 50-pound weight loss over the last two years. The patient was admitted with complaint of right lower quadrant abdominal pain. Workup included a CT scan of the abdomen and pelvis, which revealed soft tissue mass in the splenic flexure of the colon. The patient underwent colonoscopy today finding any obstructive mass at 40 cm. The endoscopist was unable to pass this mass as a result. The remainder of the colon was not evaluated. At the time of my evaluation, the patient is awake and alert. He complains of right lower quadrant abdominal pain though not as severe as it was when he first presented. He had loose bowel movements from the bowel prep. OBJECTIVE: VITAL SIGNS: Include blood pressure 123/85, pulse 78, respiratory rate is 18, temperature 97.6 degrees Fahrenheit, and oxygen saturation is 96% on room air. HEART: Reveals regular rate and rhythm. LUNGS: Clear to auscultation bilaterally. ABDOMEN: Soft with right lower quadrant tenderness to palpation. He has no peritoneal signs on examination. LABORATORY FINDINGS: Include a CBC, which was obtained on 04/08/2020 with 15,001 white blood cells, hemoglobin and hematocrit 9.9 and 30.8 respectively. Platelet count 486,000. IMPRESSION: Near obstructing left colon mass, likely malignant neoplasm. RECOMMENDATION AND PLAN: Exploratory laparotomy with partial colectomy and primary anastomosis. I have advised the patient of the possibility of subtotal colectomy if this is warranted by gross examination intraoperatively, especially given inability to evaluate the rest of the right colon via endoscopy. The patient is also informed the risks and benefits of proposed surgery to include, but not limited to bleeding, infection, injury to bowel or surrounding structures. Additionally, there is a risk for postoperative anastomotic leak, which might require reoperation. The patient indicates understanding of information provided. I have answered his questions. This information was provided to the patient in the presence of his nurse. He has granted consent for the surgical intervention. I did review the consultation performed by my partner, Dr. Altaf Etienne and also reviewed this patient's history and physical. I have ordered type and screen and coagulation studies in preparation for this surgical intervention. Job ID: [id number]
[2020-04-10] MEDS: Neomycin 500 mg Tablet PO SCH (21:17)
[2020-04-11] MEDS: NS 0.9% w/ 20 MEQ KCL 1,000 ML/1,000 ML BAG IV SCH ×3 (05:38→19:32)
[2020-04-11] MEDS: Neomycin 500 mg Tablet PO SCH (05:39)
[2020-04-11] MEDS: metroNIDAZOLE 500 MG in Premix Bag 1 BAG IVPB SCH ×2 (05:39→21:01)
[2020-04-11] MEDS: Lorazepam 2 MG/ML VIAL SLOW IVP PRN (06:33)
--- NOTE | 2020-04-11 07:34 | PDOC.HOSPP ---
- Subjective Subjective: Patient was seen today follow up of colon mass. He is resting comfortably in bed and reports improvement of his pain. He was consulted by surgery yesterday and will have his procedure today - Objective Vital Signs & Weight: Vital Signs (12 hours) Temp Pulse Resp BP Pulse Ox 04/11/20 07:27 97.6 F 88 16 126/77 98 04/11/20 04:00 98.1 F 86 18 128/85 98 04/10/20 23:38 98.1 F 89 18 131/82 97 04/10/20 20:00 98.3 F 87 16 119/79 100 04/10/20 19:41 100 Weight Admit Weight 122 lb 3.2 oz Weight 122 lb 3.2 oz I&O: 04/10/20 04/11/20 04/12/20 06:59 06:59 06:59 Intake Total 2900 2950 Balance 2900 2950 Result Diagrams: 04/11/20 08:57 04/11/20 08:57 Additional Labs: Accuchecks 04/11/20 04/11/20 04/10/20 05:49 00:17 20:42 POC Glucose 217 H 297 H 222 H 04/10/20 04/10/20 15:51 13:42 POC Glucose 340 H 307 H Hospitalist ROS - Review of Systems Constitutional: denies: fever, chills, sweats, weakness, malaise, other Eyes: denies: pain, vision change, conjunctivae inflammation, eyelid inflammation, redness, other Respiratory: denies: cough, dry, shortness of breath, hemoptysis, SOB with excertion, pleuritic pain, sputum, wheezing Cardiovascular: denies: chest pain, palpitations, orthopnea, paroxysmal noc. dyspnea, edema, light headedness Gastrointestinal: reports: abdominal pain (RLQ, pt reports improvement of his abdominal pain) Skin: denies: rash, lesions, diane, bruising, other - Medication Medications: Active Medications Generic Name Dose Route Start Last Admin Trade Name Freq PRN Reason Stop Dose Admin Famotidine 20 mg 04/08/20 09:00 04/10/20 21:16 Famotidine/Pf 20 Mg/2ml Vial SLOW IVP 20 mg Q12HR PRINCE Administration Fentanyl 25 mcg 04/10/20 17:00 10/26/20 18:03 Fentanyl 25 Mcg/Hour Patch TD 25 mcg Q3D PRINCE Administration Potassium Chloride/Sodium Chloride 1,000 ml in 1,000 mls @ 125 mls/hr 04/07/20 22:30 04/11/20 05:39 Ns 0.9% W/ 20 Meq Kcl IV Not Given .Q8H PRINCE Cefepime HCl 1 gm/ Sodium 100 mls @ 200 mls/hr 04/08/20 09:00 04/10/20 21:19 Chloride IVPB 100 mls Q12HR PRINCE Administration Metronidazole 500 mg/ Device 100 mls @ 100 mls/hr 04/08/20 06:00 04/11/20 05:39 IVPB 100 mls Q8HR PRINCE Administration Insulin Human Regular 0 units 04/07/20 22:10 04/10/20 18:30 Insulin Regular 300 Units/3 Ml Vial SC 8 unit .MODERATE SLIDING SC PRN Administration Moderate Correctional Scale Lorazepam 0.5 mg 04/09/20 11:52 04/11/20 06:33 Lorazepam 2 Mg/Ml Vial SLOW IVP 0.5 mg Q6H PRN Administration Anxiety/Agitation Morphine Sulfate 4 mg 04/10/20 16:10 04/10/20 21:46 Morphine 4 Mg/Ml Vial SLOW IVP 4 mg Q4H PRN Administration Severe Pain (7-10) - Exam Eye: PERRL, anicteric sclera ENT: normocephalic atraumatic Heart: RRR, no murmur Respiratory: no wheezes, no rales, no ronchi Gastrointestinal: tender to palpation (Mild tenderness to palpation of RLQ) Extremities: no edema Skin: normal turgor, no lesions, no rashes Neurological: cranial nerve grossly intact, no focal deficits Hosp A/P (1) Colonic mass Code(s): K63.89 - OTHER SPECIFIED DISEASES OF INTESTINE Status: Acute (2) Diabetes Code(s): E11.9 - TYPE 2 DIABETES MELLITUS WITHOUT COMPLICATIONS Status: Acute (3) Tobacco use Code(s): Z72.0 - TOBACCO USE Status: Chronic (4) Weight loss Status: Chronic - Plan * Abdominal pain- Colonoscopy findings noted- he has a large mass at about 40cm, which has almost complete obstruction of the bowel lumen. * Surgery saw the patient and he will have a procedure for resection of colon mass today * Will start a Fentanyl Patch today, and continue Morphine IV for breakthrough pain: patient reports improvement of his pain. Will continue current pain regimen. * Weight loss- with moderate protein calorie malnutrition: ensure clear was added but the patient is NPO due to his surgery * DM- continue clear liquids and SSI
[2020-04-11] MEDS: Cefepime 1 GM in Sodium Chloride 0.9% 100 ML IVPB SCH (08:34)
[2020-04-11] MEDS: Famotidine/PF 20 mg/2ml Vial SLOW IVP SCH ×2 (08:35→22:04)
[2020-04-11] MEDS: Morphine 4 MG/ML VIAL SLOW IVP PRN (08:36)
[2020-04-11 09:08] LABS: #Basophils 0.1 thou/uL (0.0-0.2); #Eosinphils 0.2 thou/uL (0.0-0.7); #Monocytes 0.4 thou/uL (0.11-0.59); #Neutrophils 8.3 thou/uL (1.40-6.50); %Basophils 0.7 % (0.0-1.0); %Eosinophils 1.5 % (0.0-10.0); %Lymphocytes 18.2 % (21.0-51.0); %Monocytes 3.8 % (0.0-10.0); %Neutrophils 75.9 % (42.0-75.0); Hemoglobin 11.7 g/dL (14.0-18.0); Mean Corpuscular HGB CONC 30.8 g/dL (32.0-36.0); Mean Corpuscular Hemoglobin 26.2 pg (27.0-31.0); Mean Corpuscular Volume 84.9 fL (78.0-98.0); Mean Platelet Volume 6.3 fL (7.4-10.4); Platelet Count 661 thou/uL (130-400); RBC Distribution Width 13.9 % (11.5-14.5); Red Blood Cell (RBC) Count 4.47 mill/uL (4.70-6.10)
[2020-04-11 09:28] LABS: Anion Gap 12 mmol/L (10-20); BUN (Urea Nitrogen) Less than 4 mg/dL (8.4-25.7); Calc. Creatinine Clearance 106 mL/min (70-130); Calcium 7.6 mg/dL (7.8-10.44); Carbon Dioxide 18 mmol/L (22-29); Chloride 108 mmol/L (98-107); Estimated GFR-MDRD Greater than 90; Glucose 272 mg/dL (70-105); Potassium 3.7 mmol/L (3.5-5.1); Sodium 134 mmol/L (136-145)
[2020-04-11] MEDS ORDERED: PROPOFOL 200 MG/20 ML VIAL ONE (12:17)
[2020-04-11] MEDS ORDERED: Lidocaine 1% PF 5 ML VIAL ONE (12:17)
[2020-04-11] MEDS ORDERED: Rocuronium Bromide 10 MG/ML (10ML VIAL) ONE (12:17)
[2020-04-11] MEDS ORDERED: Glycopyrrolate 0.2 MG/ML 5 ML SYRINGE ONE (12:17)
[2020-04-11] MEDS ORDERED: Vecuronium 10 MG VIAL ONE (12:17)
[2020-04-11] MEDS ORDERED: Fentanyl 250 MCG/5 ML VIAL ONE (13:07)
[2020-04-11] MEDS ORDERED: cefOXitin Sodium/Dextrose 2 GM/50 ML BAG ONE ×2 (13:16→19:37)
[2020-04-11] MEDS ORDERED: Sodium Chloride 0.9% 30 ML ONE ×2 (13:40→13:50)
[2020-04-11] MEDS ORDERED: Albumin 5% 500 ML ONE (14:33)
[2020-04-11] MEDS ORDERED: Phenylephrine 10 MG/ML VIAL ONE (14:39)
[2020-04-11] MEDS ORDERED: Insulin Regular 300 UNITS/3 ML VIAL ONE (15:52)
[2020-04-11] MEDS ORDERED: Sodium Bicarb 50 MEQ/50 ML VIAL ONE (16:45)
--- NOTE | 2020-04-11 17:13 | PDOC.FMACP ---
Advance Care Planning - Problem (1) Palliative care encounter Status: Acute Code(s): Z51.5 - ENCOUNTER FOR PALLIATIVE CARE (2) Colonic mass Status: Acute Code(s): K63.89 - OTHER SPECIFIED DISEASES OF INTESTINE (3) Diabetes Status: Acute Code(s): E11.9 - TYPE 2 DIABETES MELLITUS WITHOUT COMPLICATIONS - Note Participants: patient, palliative care, other (Friend) Summary: Palliative Care introduced Advanced Care Planning, opportunity to decline. The diagnosis, prognosis and goals of care were discussed. Appropriate forms and documentation to accomplish the goals of care were discussed. All questions were answered. Mr To elected to complete a MPOA and directive to physician. Original and copy given to patient as well as copies of each placed on the chart for medical records. Confirmed full resuscitation measures at this time. T Palliative Care will sign off as Advance directives were addressed. Please reconsult if our team can assist with Goal of care, complex decision making, prognosis disease assist, or support.
[2020-04-11] MEDS ORDERED: Propofol 1,000 MG/100 ML VIAL IV ONE (17:28)
[2020-04-11] MEDS ORDERED: Promethazine HCl 25 MG/ML VIAL SLOW IVP PRN (17:29)
[2020-04-11] MEDS ORDERED: Promethazine HCl 25 MG/ML VIAL IM PRN (17:29)
[2020-04-11] MEDS ORDERED: Ondansetron HCl/PF 4 MG/2 ML Vial IVP PRN (17:29)
--- NOTE | 2020-04-11 17:29 | PRG ---
DATE OF SERVICE: 04/11/2020 REASON FOR CONSULTATION: Near obstructive colonic mass. SUBJECTIVE: The patient was not able to be seen today due to his being on-call to the OR for surgical resection of the splenic flexure mass seen on colonoscopy yesterday. Per Dr. Westfall's notes, the plan was for surgical resection and possible primary anastomosis depending on the extent of disease. OBJECTIVE: VITAL SIGNS: Temperature 97.6, pulse 88, blood pressure 126/77, respiratory rate 16, saturating 98% on room air. Physical exam not able to be performed due to the fact that the patient was in the OR at the time of evaluation. LABORATORY DATA: No current studies were available for review. IMAGING DATA: Colonoscopy was performed on April 10, 2020, which showed a large circumferential near obstructing mass that was multilobulated with several areas of friability and shallow ulceration seen at approximately 40 cm past the anal verge. Attempts to advance past the mass were not successful. Biopsies were then taken with submucosal tattoos placed for future reference. In the rectum, a 7 mm sessile polyp was also seen and completely removed with hot snare polypectomy. ASSESSMENT AND PLAN: The patient is a 59-year-old male with past medical history of diabetes presenting with complaints of anemia, unexplained weight loss, now with colonoscopy performed showing a likely malignant neoplasm within the colon. Colorectal cancer: The patient initially presented to the hospital with increased weakness and abdominal discomfort that had been progressively getting worse over the last 2 years that was coupled with a progressive weight loss of over 50 pounds over the last 2 years as well. Subsequently, he underwent a colonoscopy on April 10, 2020, which showed a near obstructive mass at approximately 40 cm past the anal verge, likely malignant in nature. Biopsies were taken as well as tattoo placed for future reference. Pathology of the biopsies showed the presence of an invasive colonic adenocarcinoma that was moderately differentiated. CT scan obtained on April 07, 2020, did not show any overt evidence of metastatic disease. As such, the patient went for surgical resection of this near obstructive mass on April 11, [address] Westfall with operative report still pending at this time. At this juncture, the patient has been diagnosed with a moderately differentiated invasive adenocarcinoma with surgical resection being the primary therapeutic option at this time. However, given the inability of the colonoscope to be advanced past the mass, the patient will ultimately need a completion colonoscopy here within the next 6 to 12 months. RECOMMENDATIONS: 1. After surgical resection, we would recommend a repeat colonoscopy in 6 to 12 months for evaluation of the entire colon and any synchronous lesions. 2. Pain control per primary team. 3. Would defer to General Surgery for management of any evidence of metastatic disease with possible referral to Medical Oncology if noted. We will sign off at this time. Please call with any questions. Job ID: [id number]
[2020-04-11 17:34] LABS: Base Excess (BEa) -5.5 mEq/L (-2.0 to +3.0); CO2 Tension 29.1 mmHg (35.0-45.0); Calcium, Ionized (arterial) 1.02 mmol/L (1.12-1.30); Carboxyhemoglobin (COHb) 0.2 gm% (0.0-3.0); Hemoglobin (Hb) 11.4 g/dL (14.0-18.0); O2 Tension (PaO2), arterial 256.2 mmHg (80.0-100.0); Potassium - ABG Lab 3.19 mmol/L (3.70-5.30); pH, Arterial 7.41 (7.35-7.45)
[2020-04-11] MEDS ORDERED: Fentanyl 100 MCG/2 ML VIAL ONE ×3 (17:34→18:38)
[2020-04-11 17:35] LABS: ALV-art Gradient 135.225 mmHg (0-20); Puncture Site LRA
[2020-04-11] MEDS ORDERED: DISCONTINUE PREVIOUS NARCOTIC PAIN MEDICATIONS AND BENZODIAZEPINES FS SCH (18:30)
[2020-04-11] MEDS ORDERED: Fentanyl BOLUS 250 ML IVPB PRN (18:30)
[2020-04-11] MEDS ORDERED: Morphine 2 MG/ML VIAL SLOW IVP PRN (18:30)
[2020-04-11] MEDS ORDERED: Lorazepam 2 MG/ML VIAL SLOW IVP PRN (18:30)
[2020-04-11] MEDS ORDERED: fentaNYL Citrate/PF 2,000 MCG in Sodium Chloride 0.9% 60 ML IV SCH (18:30)
[2020-04-11] MEDS ORDERED: Propofol BOLUS 1,000 MG/100 ML VIAL IV PRN (18:30)
[2020-04-11] MEDS ORDERED: Propofol 1,000 MG/100 ML VIAL IV PRN (18:30)
[2020-04-11] MEDS ORDERED: Morphine 2 MG/ML VIAL ONE (19:21)
--- NOTE | 2020-04-11 19:23 | RAD ---
PORTABLE CHEST: 04/11/20 HISTORY: Central line placement. COMPARISON: 04/07/20. FINDINGS/IMPRESSION: ET tube and NG tube are in place. A central line has tip overlying the SVC. The lungs appear clear. No infiltrate or acute lung process identified. POS: AGW
--- NOTE | 2020-04-11 19:25 | RAD ---
SUPINE ABDOMEN: 04/11/20 INDICATIONS: Postop. COMPARISON: 04/08/20. FINDINGS/IMPRESSION: A Dobhoff type feeding tube is in place. Tip overlies the left mid abdomen, possibly within the proxi mal jejunum. There are skin peggy seen just to the left of midline. Bowel gas pattern is unremarkable. Mild gase ous distention of the stomach. POS: AGW
[2020-04-11] MEDS: cefOXitin Sodium/Dextrose,Iso 2 GM in Premix Bag 1 BAG IVPB SCH (19:45)
[2020-04-11] MEDS ORDERED: Ventilator Sedation Protocol 1 EACH FS ONE (20:09)
[2020-04-11] MEDS: Insulin Regular 300 UNITS/3 ML VIAL SC PRN (21:14)
[2020-04-11] MEDS ORDERED: Famotidine/PF 20 mg/2ml Vial ONE ×2 (21:58→21:59)
[2020-04-11 22:17] LABS: #Lymphocytes 1.9 thou/uL (1.20-3.40); #Monocytes 0.6 thou/uL (0.11-0.59); #Neutrophils 16.5 thou/uL (1.40-6.50); %Basophils 0.1 % (0.0-1.0); %Eosinophils 0.1 % (0.0-10.0); %Lymphocytes 9.9 % (21.0-51.0); %Monocytes 3.2 % (0.0-10.0); %Neutrophils 86.7 % (42.0-75.0); Hemoglobin 12.7 g/dL (14.0-18.0); Mean Corpuscular HGB CONC 31.6 g/dL (32.0-36.0); Mean Corpuscular Hemoglobin 26.4 pg (27.0-31.0); Mean Corpuscular Volume 83.7 fL (78.0-98.0); Mean Platelet Volume 6.4 fL (7.4-10.4); Platelet Count 502 thou/uL (130-400); RBC Distribution Width 14.4 % (11.5-14.5)
[2020-04-11 22:26] LABS: Lactic Acid 1.2 mmol/L (0.5-2.2)
[2020-04-11 22:28] LABS: Anion Gap 13 mmol/L (10-20); BUN (Urea Nitrogen) 5 mg/dL (8.4-25.7); Calc. Creatinine Clearance 84 mL/min (70-130); Calcium 6.7 mg/dL (7.8-10.44); Carbon Dioxide 18 mmol/L (22-29); Chloride 111 mmol/L (98-107); Estimated GFR-MDRD Greater than 90; Glucose 315 mg/dL (70-105); Potassium 3.7 mmol/L (3.5-5.1); Sodium 138 mmol/L (136-145)
[2020-04-11 22:50] LABS: Actual Bicarbonate (HCO3a) 16.8 mEq/L (22-28); Base Excess (BEa) -7.2 mEq/L (-2.0 to +3.0); CO2 Tension 29.7 mmHg (35.0-45.0); Calcium, Ionized (arterial) 1.05 mmol/L (1.12-1.30); Carboxyhemoglobin (COHb) 0.7 gm% (0.0-3.0); Hemoglobin (Hb) 13.2 g/dL (14.0-18.0); O2 Tension (PaO2), arterial 147.9 mmHg (80.0-100.0); Potassium - ABG Lab 3.51 mmol/L (3.70-5.30); pH, Arterial 7.37 (7.35-7.45)
[2020-04-11 22:52] LABS: ALV-art Gradient 242.775 mmHg (0-20); Puncture Site R RADIAL
[2020-04-11] MEDS ORDERED: Insulin Glargine 5 UNITS in Pre-Filled Syringe 1 EACH SC SCH (23:30)
[2020-04-12] MEDS: Insulin Regular 300 UNITS/3 ML VIAL SC PRN ×2 (00:37→04:26)
--- NOTE | 2020-04-12 01:06 | OP ---
DATE OF PROCEDURE: 04/11/2020 PREOPERATIVE DIAGNOSES: 1. Partial large bowel obstruction. 2. Colon cancer, nearly obstructing. POSTOPERATIVE DIAGNOSES: 1. Partial large bowel obstruction. 2. Colon cancer, nearly obstructing. 3. Multiple metastatic lesions as well as perforated cecum into the right anterior abdominal wall. OPERATIONS PERFORMED: 1. Placement of triple-lumen left subclavian central venous catheter. 2. Exploratory laparotomy. 3. Subtotal colectomy with segmental small bowel resection in an en bloc fashion. 4. Enteroenterostomy. 5. Enterocolostomy. 6. Placement of feeding nasojejunal tube. 7. Debridement of right lower quadrant anterior abdominal wall. ANESTHESIA: General endotracheal. ESTIMATED BLOOD LOSS: 500 mL. FLUIDS GIVEN: 500 mL albumin, 3 L of Ringer's lactate, and 250 mL of normal saline as well as 2 units of packed red blood cells. URINARY OUTPUT: 150 mL. COUNTS: Sponge and instrument counts were verified as correct x2. COMPLICATIONS: None apparent at the time of operation. INDICATIONS FOR OPERATION: A 59-year-old man presented to the emergency department, with persistent right lower quadrant abdominal pain and obstipation. Clinical and radiographic examination were consistent with a nearly obstructing colon mass in the splenic flexure. Bowel was prepped and patient underwent colonoscopy and finding a nearly obstructing colon mass at 40 cm. Biopsy was taken which was consistent with moderately differentiated adenocarcinoma. DESCRIPTION OF PROCEDURE: Patient was brought to the operating room today for abdominal exploration. Findings are consistent with perforated cecum into the right anterior abdominal wall with adhering two loops of distal ileum. Additionally, large bulky mass is noted in the splenic flexure. The mass in the splenic flexure was consistent with the biopsy report. There is also fullness in the pancreatic head. I did not explore this for diagnosis. Informed consent was obtained from the patient, who was brought to the operating room and placed in supine position. Following general anesthesia, left chest wall sterilely prepped and draped in usual fashion. The left subclavian vein was cannulated with an 18-gauge introducer needle returning dark venous blood. Guidewire was passed through the needle, advanced into the left subclavian vein without resistance. The needle was withdrawn over the guidewire. A stab incision was made adjacent to the guidewire using 11 scalpel. Dilator was passed over the guidewire dilating the subcutaneous tissues. Dilator was removed and a triple-lumen central venous catheter was advanced over the guidewire and placed in the left subclavian vein without resistance stopping at the 18 cm lizbeth. Guidewire was removed. Dark venous blood aspirated from all three ports, which were individually flushed with saline. Catheter was secured to anterior chest wall using 3-0 silk suture at two points. Sterile dressings were then applied. My attention was then directed to the abdomen. The abdomen was sterilely prepped and draped in usual fashion after a Wynne catheter was inserted and placed to bedside drain, and a nasogastric tube was inserted and placed to wall suction. Following abdominal prepping and draping, a midline incision was made using 10 scalpel. Incision was carried through subcutaneous tissues maintaining hemostasis using cautery. Fascia was incised in the midline exposing the peritoneum, beneath, which was grasped x2 with hemostats. Peritoneal cavity was sharply entered using Metzenbaum scissors. The incision was then extended superiorly and inferiorly. A large amount of ascites was evacuated from the peritoneal cavity. The abdomen was then explored in all 4 quadrants. I was able to run the bowel from the ligament of Treitz down to distal ileum which was completely welded to the cecum and the cecum itself is welded to the right lower quadrant abdominal wall. We were able to bluntly dissect the cecum off the abdominal wall. I immediately was able to see the perforation of the cecum into the anterior abdominal wall. There was a significant amount of fibrosis and inflammatory adhesions involving this abdominal wall. We were able to close the cecal perforation with 3-0 silk suture to gain control of fecal contamination. Two loops of small bowel were welded to the cecum itself and the decision was made to resect this en bloc with the large intestine. I then inspected the remainder of the large intestine from the cecum through the ascending, transverse colon down to the splenic flexure where a large bulky hard mass was palpated. I did see the [place] Ink tattoo that was applied by Gastroenterology inferior to this mass. The remainder of the descending colon, sigmoid colon, and rectum were free of any palpable masses. The stomach was palpated free of any abnormalities. Previous nasogastric tube was palpated within the gastric lumen. At this juncture, a feeding nasojejunal tube was inserted by Anesthesia, the tip of which was palpated by myself within the gastric lumen. The manipulated tip of this catheter into proximal small bowel without resistance. Liver was palpated free of any metastasis. However, there is a significant amount of adhesions above the liver itself. I did not disturb this adhesive process. An ectatic spleen is palpated in the left upper quadrant usual anatomic location and is free of any abnormalities. At this juncture, we decided to proceed with subtotal colectomy. To achieve this, I mobilized the left colon along the white line of Toldt using Metzenbaum scissors and blunt dissection times. The left colon was reflected medially. I then created a rent through the mesentery of the descending colon approximately 3 cm below the [place] Ink tattoo. The bowel was then divided here using a ELIE stapler. I proceeded to take down the splenic flexure bluntly and at times sharply using LigaSure device to achieve hemostasis. The omentum was palpated and appeared to have some metastatic process. Therefore, we decided to take the omentum along with the colon itself. This was divided serially using LigaSure device. Care taken to avoid injury to overlying stomach. I then turned my attention to the right colon. Two loops of distal small bowel were welded to the cecum and I created a rent through the proximal small bowel through which a ELIE stapler was introduced and the bowel was divided here. I then followed a small intestine to segment dimensions approximately 1 foot, which was free of any adhesions to the cecum. Here beyond this point, a rent is created again in the small bowel and the bowel was divided. We were now able to mobilize the right colon along the white line of Toldt using Metzenbaum scissors, alternated with LigaSure device with good hemostasis. Care was taken to avoid injuries to underlying retroperitoneal structures. I mobilized the colon upwards reflecting the right colon medially. The hepatic flexure was taken down to allow us to reflect the colon medially to expose the underlying duodenum which was kept out of harm's way. The transverse colon was also mobilized off the lesser sac using LigaSure device. Mesentery of the colon was then serially divided using LigaSure device to achieve good hemostasis. The specimen is passed off the operative field for formal transmission to Pathology. The abdominal cavity was then copiously irrigated with saline and good hemostasis noted in place. Once the colon was passed off the field, I inspected the duodenum. No injuries to the duodenum were noted. There is a fullness medial to the C-loop of the duodenum and in the area where the head of the pancreas will be, however, we did not explore this. Finding no other pathology, at this juncture, exploration is terminated. We were then proceeding to reestablish bowel continuity. To achieve this, the proximal end of the distal small-bowel segment was brought in a dcyn-bz-awog fashion to the proximal limb using interrupted sutures of 3-0 silk and enterotomies were then made at both apices, through which free ends of ELIE stapler was introduced and functional end-to-end but anatomic [id number] enteroenterostomy was achieved. The common enterotomies were closed using a TA stapler. The resultant mesenteric defect here was closed using a running stitch of 2-0 Vicryl. I then turned my attention to the distal staple end of this very segment which was brought in a udyp-yp-kbjx fashion with the descending colon using interrupted sutures of 3-0 silk. Enterotomies were then made at both apices again, through which free ends of ELIE stapler was introduced and functional end-to-end but anatomic dqbi-wr-jwtr enterocolostomy was perfected. Common enterotomy was closed using a reload of a TA stapler. Mesenteric defect was closed using a running stitch of 2-0 Vicryl. I placed a crotch stitch of 3-0 silk. The abdominal cavity was again re-irrigated with saline. Some bleeding points were noted and controlled with interrupted sutures of 2-0 silk. All sponges and instrument were reported as correct x2. The bowel was returned to normal anatomic location. A sheet of Seprafilm was placed in the deep pelvis and a second piece was placed in the mid abdomen. I turned my attention to the necrotic tissue in the right lower quadrant abdominal wall which were sharply debrided using Metzenbaum scissors and passed off the operative field for formal transmission to Pathology. Fascia was then approximated in the midline using a running stitch of #1 single stranded PDS. Subcutaneous tissues were pulse lavaged with 3 L of sterile saline. Using a different closure set gown and gloves, the deep subcutaneous tissues were approximated using interrupted sutures of 3-0 Vicryl. Skin incisions are closed in the midline using pgegy. Sterile dressings were applied. Patient tolerated the operation without any apparent complication and was returned to the recovery room in critical, but stable condition. Job ID: [id number]
[2020-04-12] MEDS ORDERED: Propofol 1,000 MG/100 ML VIAL IV ONE (01:12)
[2020-04-12] MEDS ORDERED: Sodium Chloride 0.9% 30 ML ONE (03:37)
[2020-04-12] MEDS: cefOXitin Sodium/Dextrose,Iso 2 GM in Premix Bag 1 BAG IVPB SCH ×3 (04:01→20:05)
[2020-04-12] MEDS ORDERED: Potassium Chloride 20 MEQ/100 ML PREMIX BAG ONE (04:03)
[2020-04-12] MEDS ORDERED: NS 0.9% w/ 20 MEQ KCL 1,000 ML ONE (04:05)
[2020-04-12 04:20] LABS: #Lymphocytes 1.8 thou/uL (1.20-3.40); #Monocytes 0.7 thou/uL (0.11-0.59); #Neutrophils 10.8 thou/uL (1.40-6.50); %Basophils 0.3 % (0.0-1.0); %Eosinophils 0.2 % (0.0-10.0); %Lymphocytes 13.8 % (21.0-51.0); %Neutrophils 80.7 % (42.0-75.0); Hemoglobin 10.9 g/dL (14.0-18.0); Mean Corpuscular Hemoglobin 27.1 pg (27.0-31.0); Mean Corpuscular Volume 84.8 fL (78.0-98.0); Mean Platelet Volume 6.4 fL (7.4-10.4); Platelet Count 438 thou/uL (130-400); RBC Distribution Width 14.3 % (11.5-14.5); Red Blood Cell (RBC) Count 4.02 mill/uL (4.70-6.10); White Blood Cell (WBC) Count 13.4 thou/uL (4.8-10.8)
[2020-04-12] MEDS ORDERED: Albumin 5% 500 ML ONE (04:30)
[2020-04-12 04:44] LABS: Phosphorus 2.4 mg/dL (2.3-4.7)
[2020-04-12 04:48] LABS: Anion Gap 10 mmol/L (10-20); BUN (Urea Nitrogen) 5 mg/dL (8.4-25.7); Calc. Creatinine Clearance 94 mL/min (70-130); Carbon Dioxide 15 mmol/L (22-29); Chloride 116 mmol/L (98-107); Estimated GFR-MDRD Greater than 90; Glucose 199 mg/dL (70-105); Potassium 3.6 mmol/L (3.5-5.1); Sodium 137 mmol/L (136-145)
[2020-04-12 04:53] LABS: Calcium 5.8 mg/dL (7.8-10.44); Magnesium 0.8 mg/dL (1.6-2.6)
[2020-04-12] MEDS: NS 0.9% w/ 20 MEQ KCL 1,000 ML/1,000 ML BAG IV SCH ×4 (06:30→21:26)
--- NOTE | 2020-04-12 07:52 | PDOC.HOSPP ---
- Subjective Subjective: PATIENT NOT SEEN . PATIENT IS IN SURGERY - Objective Vital Signs & Weight: Vital Signs (12 hours) Pulse BP 04/12/20 07:00 101 H 126/86 04/12/20 03:25 113 H 04/11/20 22:34 89 04/11/20 20:05 93 Weight Admit Weight 122 lb 3.2 oz Weight 122 lb 3.2 oz I&O: 04/11/20 04/12/20 04/13/20 06:59 06:59 06:59 Intake Total 2950 1950 Output Total 185 Balance 2950 1765 Result Diagrams: 04/12/20 03:57 04/12/20 03:57 Additional Labs: Accuchecks 04/12/20 04/12/20 04/12/20 04:21 00:16 00:16 POC Glucose 174 H 241 H 241 H 04/11/20 04/11/20 04/11/20 21:09 16:08 14:58 POC Glucose 278 H 286 H 248 H 04/11/20 11:17 POC Glucose 216 H Hospitalist ROS - Medication Medications: Active Medications Generic Name Dose Route Start Last Admin Trade Name Freq PRN Reason Stop Dose Admin Famotidine 20 mg 04/08/20 09:00 04/11/20 22:04 Famotidine/Pf 20 Mg/2ml Vial SLOW IVP 20 mg Q12HR PRINCE Administration Potassium Chloride/Sodium Chloride 1,000 ml in 1,000 mls @ 125 mls/hr 04/07/20 22:30 04/11/20 19:32 Ns 0.9% W/ 20 Meq Kcl IV 1,000 mls .Q8H PRINCE Administration Cefoxitin Sodium/Dextrose 2 gm 50 mls @ 100 mls/hr 04/11/20 20:00 04/12/20 04:01 / Device IVPB 50 mls 0400,1200,2000 PRINCE Administration Insulin Human Regular 0 units 04/07/20 22:10 04/12/20 04:26 Insulin Regular 300 Units/3 Ml Vial SC 2 unit .MODERATE SLIDING SC PRN Administration Moderate Correctional Scale Morphine Sulfate 2 mg 04/11/20 18:30 04/11/20 19:25 Morphine 2 Mg/Ml Vial SLOW IVP 05/11/20 18:30 2 mg Q1H PRN Administration Breakthrough Pain/Agitation Hosp A/P (1) Colonic mass Code(s): K63.89 - OTHER SPECIFIED DISEASES OF INTESTINE Status: Acute (2) Diabetes Code(s): E11.9 - TYPE 2 DIABETES MELLITUS WITHOUT COMPLICATIONS Status: Acute (3) Tobacco use Code(s): Z72.0 - TOBACCO USE Status: Chronic (4) Weight loss Status: Chronic - Plan * PATIENT IN SURGERY
[2020-04-12 08:01] LABS: Actual Bicarbonate (HCO3a) 16.6 mEq/L (22-28); Base Excess (BEa) -8.1 mEq/L (-2.0 to +3.0); CO2 Tension 31.5 mmHg (35.0-45.0); Calcium, Ionized (arterial) 1.09 mmol/L (1.12-1.30); Carboxyhemoglobin (COHb) 0.5 gm% (0.0-3.0); Hemoglobin (Hb) 11.3 g/dL (14.0-18.0); O2 Tension (PaO2), arterial 140.6 mmHg (80.0-100.0); Potassium - ABG Lab 3.72 mmol/L (3.70-5.30); pH, Arterial 7.34 (7.35-7.45)
[2020-04-12] MEDS: Magnesium 2 GM/50 ML 2 GM in Premix Bag 1 BAG IVPB SCH (08:04)
--- NOTE | 2020-04-12 08:11 | PDOC.HOSPP ---
- Subjective Subjective: Pt is intubated. He is transferred to CCU following subtotal colectomy yesterday. His urine output is 20 ml/hr. He denies any pain - Objective Vital Signs & Weight: Vital Signs (12 hours) Pulse BP 04/12/20 07:00 101 H 126/86 04/12/20 03:25 113 H 04/11/20 22:34 89 Weight Admit Weight 122 lb 3.2 oz Weight 122 lb 3.2 oz I&O: 04/11/20 04/12/20 04/13/20 06:59 06:59 06:59 Intake Total 2950 1950 Output Total 185 Balance 2950 1765 Result Diagrams: 04/12/20 03:57 04/12/20 03:57 Additional Labs: Accuchecks 04/12/20 04/12/20 04/12/20 04:21 00:16 00:16 POC Glucose 174 H 241 H 241 H 04/11/20 04/11/20 04/11/20 21:09 16:08 14:58 POC Glucose 278 H 286 H 248 H 04/11/20 11:17 POC Glucose 216 H Hospitalist ROS - Review of Systems Constitutional: denies: fever, chills, sweats, weakness, malaise, other Respiratory: denies: wheezing Cardiovascular: denies: chest pain Gastrointestinal: denies: abdominal pain Musculoskeletal: denies: neck pain, shoulder pain, arm pain - Medication Medications: Active Medications Generic Name Dose Route Start Last Admin Trade Name Freq PRN Reason Stop Dose Admin Famotidine 20 mg 04/08/20 09:00 04/11/20 22:04 Famotidine/Pf 20 Mg/2ml Vial SLOW IVP 20 mg Q12HR PRINCE Administration Potassium Chloride/Sodium Chloride 1,000 ml in 1,000 mls @ 125 mls/hr 04/07/20 22:30 04/11/20 19:32 Ns 0.9% W/ 20 Meq Kcl IV 1,000 mls .Q8H PRINCE Administration Fentanyl Citrate 2,000 mcg/ 100 mls @ 0 mls/hr 04/11/20 18:30 04/12/20 08:00 Sodium Chloride IV 05/11/20 18:30 100 mls INF PRINCE Administration Protocol Per Protocol Cefoxitin Sodium/Dextrose 2 gm 50 mls @ 100 mls/hr 04/11/20 20:00 04/12/20 04:01 / Device IVPB 50 mls 0400,1200,2000 PRINCE Administration Insulin Human Regular 0 units 04/07/20 22:10 04/12/20 04:26 Insulin Regular 300 Units/3 Ml Vial SC 2 unit .MODERATE SLIDING SC PRN Administration Moderate Correctional Scale Morphine Sulfate 2 mg 04/11/20 18:30 04/11/20 19:25 Morphine 2 Mg/Ml Vial SLOW IVP 05/11/20 18:30 2 mg Q1H PRN Administration Breakthrough Pain/Agitation - Exam General - other findings: Intubated, but responsive Eye: PERRL ENT: normocephalic atraumatic Neck: supple Heart: RRR, no murmur, no gallops Respiratory: no wheezes, no rales, no ronchi Gastrointestinal: soft, non-tender, non-distended Extremities: no edema (Mild lower extremity edema) Skin: no lesions, no rashes Hosp A/P (1) Colonic mass Code(s): K63.89 - OTHER SPECIFIED DISEASES OF INTESTINE Status: Acute (2) Diabetes Code(s): E11.9 - TYPE 2 DIABETES MELLITUS WITHOUT COMPLICATIONS Status: Acute (3) Tobacco use Code(s): Z72.0 - TOBACCO USE Status: Chronic (4) Weight loss Status: Chronic - Plan * Abdominal pain- Colonoscopy findings noted- he has a large mass at about 40cm, which has almost complete obstruction of the bowel lumen. * Pt is post op day 1 following a subtotal colectomy. He is intubated. Dr. Westfall ordered blood gas and extubation depends on the blood gas results. * Will start a Fentanyl Patch today, and continue Morphine IV for breakthrough pain: patient reports improvement of his pain. Will continue current pain regimen. * Weight loss- with moderate protein calorie malnutrition: ensure clear was added but the patient is NPO due to his surgery * DM- continue clear liquids and SSI * * Patient seen and examined and discussed with Santi Duarte Ms-3, and agree with his assessment. Patient is post -op day 1. He is intubated, but expect him to be extubated today. Exam as above. Will defer critical care management to the surgery team. Pain control as per ICU sedation protocol. Replace Magnesium and calcium. Continue empiric antibiotics. Nutritional supplementation will be addressed post extubation.
[2020-04-12 08:16] LABS: ALV-art Gradient 105.225 mmHg (0-20); Puncture Site RB
[2020-04-12] MEDS: Famotidine/PF 20 mg/2ml Vial SLOW IVP SCH ×2 (09:10→20:05)
[2020-04-12] MEDS ORDERED: Calcium Chloride 13.6 MEQ in Sodium Chloride 0.9% 100 ML IVPB SCH (09:15)
[2020-04-12] MEDS ORDERED: Promethazine HCl 25 MG/ML VIAL IM PRN (10:04)
[2020-04-12] MEDS ORDERED: diphenhydrAMINE 50 MG/ML VIAL IM PRN (10:04)
[2020-04-12] MEDS ORDERED: diphenhydrAMINE 50 MG/ML VIAL IVP PRN (10:04)
[2020-04-12] MEDS ORDERED: Ondansetron PF 4 MG/2 ML Vial IVP PRN (10:04)
[2020-04-12] MEDS ORDERED: diphenhydrAMINE 25 MG CAP PO PRN (10:04)
[2020-04-12] MEDS ORDERED: Communication Order-Pharmacy FS PRN (10:15)
[2020-04-12] MEDS: Ketorolac Tromethamine 30 MG/ML VIAL IVP PRN (11:55)
[2020-04-12] MEDS: HYDROmorphone 10 mg/100 ml CADD IVPB PRN (12:20)
[2020-04-12 14:06] LABS: Lactic Acid 0.9 mmol/L (0.5-2.2)
[2020-04-12 14:08] LABS: Phosphorus 2.2 mg/dL (2.3-4.7)
[2020-04-12 14:14] LABS: Anion Gap 10 mmol/L (10-20); BUN (Urea Nitrogen) 6 mg/dL (8.4-25.7); Calc. Creatinine Clearance 68 mL/min (70-130); Calcium 7.6 mg/dL (7.8-10.44); Carbon Dioxide 16 mmol/L (22-29); Chloride 117 mmol/L (98-107); Estimated GFR-MDRD 84; Glucose 102 mg/dL (70-105); Magnesium 1.8 mg/dL (1.6-2.6); Potassium 4.1 mmol/L (3.5-5.1); Sodium 139 mmol/L (136-145)
--- NOTE | 2020-04-12 15:36 | PRG ---
DATE OF SERVICE: 04/12/2020 SUBJECTIVE: Mr. To is a 59-year-old man, postop day #1, status post exploratory laparotomy, subtotal colectomy with en bloc segmental small bowel resection and primary enteroenterostomy and enterocolostomy. The patient was on mechanical ventilator support overnight. This morning, when sedation is decreased, he opens his eyes, moves all extremities, and follows commands. Urinary output is marginal, requiring fluid boluses. The patient reports adequate pain control. OBJECTIVE: VITAL SIGNS: His vital signs today include blood pressure 160/97, pulse is 104, respiratory rate is 16, maximum temperature in last 24 hours is 98.3 degrees Fahrenheit, oxygen saturation 100% on FiO2 of 40% on mechanical ventilator support. HEENT: Pupils are equal, round, reactive to light bilaterally. He has bilateral scleral edema present. He has no jugular venous distention noted. HEART: Reveals regular rate with mild sinus tachycardia. No murmurs or gallops auscultated. LUNGS: Clear to auscultation bilaterally. Breathing, regular and nonlabored. ABDOMEN: Soft and nondistended. Incision intact, clean, dry. EXTREMITIES: Reveal 2+ radial and pedal pulses bilaterally. No ankle edema is present. NEUROLOGIC: Reveals no focal deficits present. LABORATORY FINDINGS: Today include a CBC with 13,400 white blood cells, hemoglobin and hematocrit 10.9 and 34.1 respectively. Platelet count is 438,000. Arterial blood gas; pH 7.34, pCO2 is 32, pO2 of 141, base excess -8.1, ionized calcium 1.09. Metabolic profile; sodium 139, potassium 4.1, chloride is 117, bicarb is 16, BUN is 6, creatinine 0.92, glucose is 102, lactic acid is 0.9, magnesium 1.8, and phosphorus 2.2. IMPRESSION: 1. Postoperative day #1 status post exploratory laparotomy, subtotal colectomy with en bloc segmental small bowel resection with primary anastomosis. 2. Multifocal metastatic colon cancer. 3. Acute respiratory failure, resolving. 4. Acute hypomagnesemia. 5. Acute hypophosphatemia. 6. Acute hypocalcemia. 7. Acute metabolic acidosis. PLAN: 1. Correct abnormal electrolytes. 2. Continue with fluid resuscitation and monitor urinary output as endpoint of our resuscitation. 3. Wean mechanical ventilator support to extubate the patient as indicated. 4. Increase activity per Physical and Occupational Therapy. 5. We will ask Oncology to evaluate the patient for neoadjuvant chemotherapy. 6. Above findings and plan discussed with the patient, who indicates understanding of information provided. Total critical care time is 35 minutes. Job ID: [id number]
[2020-04-12] MEDS: Enoxaparin Sodium 40 MG/0.4 ML SYRINGE SC SCH (20:05)
[2020-04-12] MEDS ORDERED: Insulin Glargine 5 UNITS in Pre-Filled Syringe 1 EACH SC SCH (21:00)
--- NOTE | 2020-04-13 00:11 | PRG ---
DATE OF SERVICE: SUBJECTIVE: This is a 59-year-old male, postop day 1, status post ex lap, subtotal colectomy with en bloc segmental small-bowel resection and enteroenterostomy and enterocolostomy. Patient was extubated earlier today. He is currently on a BOBBIN DISKER for pain. Evaluation this evening, the patient is resting in bed. Appears comfortable and vocalized no complaint. Nursing at bedside did not vocalize any questions. OBJECTIVE: VITAL SIGNS: Reviewed and as documented in the electronic medical record. Patient is afebrile. GENERAL: Resting in bed, in no acute distress. Appears comfortable. Breathing is nonlabored. Urinary output 35 to 40 cc an hour. ASSESSMENT: As documented in the electronic medical record in progress note dated 04/12/2020. Continue supportive care as ordered. Continue pain management as ordered. If patient continues to do well, may be a candidate for transfer from ICU tomorrow. Job ID: [id number]
[2020-04-13] MEDS: NS 0.9% w/ 20 MEQ KCL 1,000 ML/1,000 ML BAG IV SCH ×3 (03:43→20:15)
[2020-04-13] MEDS: cefOXitin Sodium/Dextrose,Iso 2 GM in Premix Bag 1 BAG IVPB SCH ×3 (03:44→20:06)
[2020-04-13 05:56] VITALS: BMI 21.6
--- NOTE | 2020-04-13 07:36 | PDOC.HOSPP ---
- Subjective Encounter Date: 04/13/20 Encounter Time: 09:30 Subjective: Pt is a 59 y/o M post op day 2 of subtotal colectomy for colon cancer. He complains of a 6/10 pain in his lower abdomen. He has been using a pain medication pump which seems to be controlling his pain well - Objective Vital Signs & Weight: Vital Signs (12 hours) Temp Pulse Ox 04/13/20 03:00 98.3 F 04/13/20 00:00 98.5 F 04/12/20 20:00 98.3 F 96 Weight Admit Weight 122 lb 3.2 oz Weight 142 lb 3.17 oz Most Recent Monitor Data Heart Rate from ECG 78 NIBP 122/70 NIBP BP-Mean 87 Respiration from ECG 15 SpO2 96 I&O: 04/12/20 04/13/20 04/14/20 06:59 06:59 06:59 Intake Total 1969.2 3372.4 Output Total 210 764 Balance 1759.2 2608.4 Result Diagrams: 04/13/20 07:36 04/13/20 07:36 Additional Labs: Accuchecks 04/13/20 04/12/20 04/12/20 03:47 23:39 20:03 POC Glucose 122 H 109 H 77 04/12/20 04/12/20 04/12/20 15:59 13:12 08:33 POC Glucose 92 88 116 H Hospitalist ROS - Review of Systems Constitutional: denies: fever, chills, sweats, weakness, malaise, other Respiratory: denies: cough, dry, shortness of breath, hemoptysis, SOB with excertion, pleuritic pain, sputum, wheezing, other Cardiovascular: denies: chest pain, palpitations, orthopnea, paroxysmal noc. dyspnea, edema, light headedness, other Gastrointestinal: reports: abdominal pain (Blake lower abdominal pain) Genitourinary: denies: dysuria, frequency, incontinence, hematuria, retention, other - Medication Medications: Active Medications Generic Name Dose Route Start Last Admin Trade Name Freq PRN Reason Stop Dose Admin Enoxaparin Sodium 40 mg 04/12/20 21:00 04/12/20 20:05 Enoxaparin Sodium 40 Mg/0.4 Ml Syringe SC 40 mg 2100 PRINCE Administration Famotidine 20 mg 04/08/20 09:00 04/12/20 20:05 Famotidine/Pf 20 Mg/2ml Vial SLOW IVP 20 mg Q12HR PRINCE Administration Hydromorphone HCl 0 mg 04/12/20 10:04 04/12/20 12:20 Hydromorphone 10 Mg/100 Ml Cadd IVPB 10 mg INF PRN Administration Pain Potassium Chloride/Sodium Chloride 1,000 ml in 1,000 mls @ 125 mls/hr 04/07/20 22:30 04/13/20 03:43 Ns 0.9% W/ 20 Meq Kcl IV 1,000 mls .Q8H PRINCE Administration Cefoxitin Sodium/Dextrose 2 gm 50 mls @ 100 mls/hr 04/11/20 20:00 04/13/20 03:44 / Device IVPB 50 mls 0400,1200,2000 PRINCE Administration Insulin Glargine 5 units/ 0.05 mls @ 0 mls/hr 04/12/20 21:00 04/12/20 20:12 Miscellaneous Medication SC Not Given HS [facility] Insulin Human Regular 0 units 04/07/20 22:10 04/12/20 04:26 Insulin Regular 300 Units/3 Ml Vial SC 2 unit .MODERATE SLIDING SC PRN Administration Moderate Correctional Scale Ketorolac Tromethamine 30 mg 04/12/20 10:04 04/12/20 11:55 Ketorolac Tromethamine 30 Mg/Ml Vial IVP 04/15/20 10:05 30 mg Q6H PRN Administration Moderate Pain (4-6) - Exam General Appearance: awake alert Eye: PERRL, anicteric sclera ENT: normocephalic atraumatic Neck: supple Heart: RRR, no murmur, no gallops, no rubs Respiratory: wheezes (mild inspiratory wheezes) Gastrointestinal: soft, no guarding, no rigidity, tender to palpation (Mild blake lower abdominal tenderness to palpation, Hypoactive bowel sounds) Extremities: no cyanosis, 2+ LE edema (2+ LE edema on the L, Mild LE on the R) Skin: normal turgor Hosp A/P (1) Colonic mass Code(s): K63.89 - OTHER SPECIFIED DISEASES OF INTESTINE Status: Acute (2) Diabetes Code(s): E11.9 - TYPE 2 DIABETES MELLITUS WITHOUT COMPLICATIONS Status: Acute (3) Tobacco use Code(s): Z72.0 - TOBACCO USE Status: Chronic (4) Weight loss Status: Chronic - Plan * Abdominal pain- Colonoscopy findings noted- he has a large mass at about 40cm, which has almost complete obstruction of the bowel lumen. * Pt is post op day 2 following a subtotal colectomy. He is extubated and seems to be tolerating the pain well with EDGE GRINDER pump. Encourage the pt to continue using the spirometer. * Will start a Fentanyl Patch today, and continue Morphine IV for breakthrough pain: patient reports improvement of his pain. Will continue current pain regimen. * Weight loss- with moderate protein calorie malnutrition: Will be managed when he can tolerate p.o. * DM- continue SSI * Nutritional Support- tube feeding- with J- tube * * Patient seen and examined and discussed with Santi Duarte Ms-3, and agree with his assessment. Patient is post -op day 2. He is extubated. Exam as above. Pain is controlled with EDGE GRINDER pump. He is receiving trickle feeds via J- tube. Blood glucose has remained stable. Hopefully he can be moved out of the ICU today. He is aware of the pathology results, and will consult Oncology
[2020-04-13 08:10] LABS: Anion Gap 9 mmol/L (10-20); BUN (Urea Nitrogen) 6 mg/dL (8.4-25.7); Calc. Creatinine Clearance 121 mL/min (70-130); Calcium 7.5 mg/dL (7.8-10.44); Carbon Dioxide 18 mmol/L (22-29); Chloride 118 mmol/L (98-107); Estimated GFR-MDRD Greater than 90; Glucose 135 mg/dL (70-105); Magnesium 1.5 mg/dL (1.6-2.6); Phosphorus 2.1 mg/dL (2.3-4.7); Potassium 4.3 mmol/L (3.5-5.1); Sodium 141 mmol/L (136-145)
[2020-04-13 08:27] LABS: Hemoglobin 9.8 g/dL (14.0-18.0); Mean Corpuscular HGB CONC 30.7 g/dL (32.0-36.0); Mean Corpuscular Hemoglobin 26.3 pg (27.0-31.0); Mean Corpuscular Volume 85.6 fL (78.0-98.0); Mean Platelet Volume 6.3 fL (7.4-10.4); Platelet Count 472 thou/uL (130-400); RBC Distribution Width 14.3 % (11.5-14.5); Red Blood Cell (RBC) Count 3.71 mill/uL (4.70-6.10); White Blood Cell (WBC) Count 21.5 thou/uL (4.8-10.8)
[2020-04-13] MEDS ORDERED: Magnesium Sulfate 4 GM, Sodium Phosphate 30 MMOL in Sodium Chloride 0.9% 250 ML 250 ML IVPB SCH (08:30)
[2020-04-13 08:35] LABS: Band 10 % (5-11); Hypochromia SLIGHT = 6-15 cells (100X) (0-5/hpf); Lymphocytes 4 % (21-51); MDiff Complete? YES; Monocytes 1 % (0-10); Neutrophil 84 % (42-75); Platelet Morphology Comment Appears Increased
[2020-04-13] MEDS: Famotidine/PF 20 mg/2ml Vial SLOW IVP SCH (09:10)
[2020-04-13] MEDS ORDERED: Potassium Phosphate 9 MMOL in Sodium Chloride 0.9% 100 ML IVPB SCH (09:45)
[2020-04-13] MEDS: Ketorolac Tromethamine 30 MG/ML VIAL IVP PRN (09:59)
[2020-04-13] MEDS ORDERED: Sodium Chloride 0.9% 500 ML IV SCH (10:00)
[2020-04-13] MEDS: HYDROmorphone 10 mg/100 ml CADD IVPB PRN (10:16)
[2020-04-13] MEDS: Insulin Regular 300 UNITS/3 ML VIAL SC PRN (15:33)
--- NOTE | 2020-04-13 19:46 | CON ---
DATE OF CONSULTATION: REASON FOR CONSULT: Colon cancer. HISTORY OF PRESENT ILLNESS: Mr. To is a pleasant 59-year-old gentleman with past medical history of pancreatitis and diabetes, who presented to the emergency room with a 5 to 6 month history of abdominal discomfort started around the time of the quarantine. He has been having issues with constipation, weight loss despite a good appetite. In the emergency room, he underwent a CT scan. There was a wall thickening of the colon involving the splenic flexure. There was an abnormal small bowel pattern with a proximal intussusception. He had atrophic pancreas and fatty liver. He underwent a colonoscopy where an obstructing mass was found at 40 cm. The biopsy returned invasive adenocarcinoma. Surgical consult was done and the patient underwent exploratory laparotomy on April 11. He had a subtotal colectomy with segmental small-bowel resection. He had enteroenterostomy and enterocolostomy. He had a large bulky mass noted at the splenic flexure. He had perforated cecum into the right anterior abdominal wall with adhering loops of the distal ileum. There were a large amount of ascites. He had multiple metastatic lesions. The patient was intubated overnight and has been extubated and is recovering in the ICU. He is on a fentanyl pump for pain. The patient has never had a colonoscopy. He has no family history of colon cancer. He has a brother with multiple myeloma and a mother who had head and neck cancer 20 years ago. He is an everyday smoker, but does not drink. PAST MEDICAL HISTORY: 1. Pancreatitis. 2. Diabetes mellitus 2. PAST SURGICAL HISTORY: Cholecystectomy. ALLERGIES: NO KNOWN DRUG ALLERGIES. HOME MEDICATIONS: None. FAMILY HISTORY: Mother with head and neck cancer. Brother with multiple myeloma. No family history of colon cancer. SOCIAL HISTORY: Single. Smokes a pack a day of cigarettes. No alcohol or illicit drug use. REVIEW OF SYSTEMS: Positive for abdominal pain and weight loss. Otherwise, 12-point review of systems is negative. PHYSICAL EXAMINATION: VITAL SIGNS: Temperature 97.8, pulse is 80, respiratory rate 17, blood pressure is 143/78, he is 92% on 2 L nasal cannula. GENERAL: This is a thin male, in no acute distress. HEENT: Normocephalic, atraumatic. Pupils are equal and reactive to light. NECK: Supple. CV: Regular rate and rhythm. LUNGS: Clear anterior. ABDOMEN: Has a dressing in place, it is clean, dry, and intact. SKIN: There is no rash. HEMATOLOGIC: There is no petechiae or purpura. NEUROLOGIC: Nonfocal. PERTINENT LABORATORY DATA AND X-RAYS: WBCs are 21.5, hemoglobin 9.8, hematocrit 31.8, platelet count 472,000, 84% neutrophils, 10% bands, 4% lymphocytes. PT 13.7, INR is 1, PTT is 23.1. Sodium 141, potassium 4.3, chloride 118, CO2 is 18, BUN is 6, creatinine 0.6, calcium 7.5, phosphorus 2.1, magnesium 1.5, bilirubin 0.2, AST is 13, ALT is 12, alkaline phosphatase is 117, serum total protein is 4.8, albumin 2.4, globulin 2.4. CEA preoperatively was 4.02. Urine negative. COVID PCR negative. Radiology per HPI. ASSESSMENT: Invasive adenocarcinoma of the colon. DISCUSSION: The patient has stage IV colon cancer. He will need chemotherapy, which will likely be FOLFOX with or without Avastin. He needs a MediPort. He is currently recovering from surgery and will not start chemotherapy for at least 2 weeks. He has no insurance and financial counselor has started the process of any financial assistance. Case has been discussed with Dr. Blake. We will be happy to take care of this unfortunate gentleman. Thank you for the consult. Job ID: [id number] [facility]
[2020-04-13] MEDS: Enoxaparin Sodium 40 MG/0.4 ML SYRINGE SC SCH (20:07)
[2020-04-14] MEDS ORDERED: Amlodipine 5 MG TAB PO SCH (00:45)
[2020-04-14] MEDS: Insulin Regular 300 UNITS/3 ML VIAL SC PRN ×4 (00:52→18:49)
[2020-04-14] MEDS: cefOXitin Sodium/Dextrose,Iso 2 GM in Premix Bag 1 BAG IVPB SCH ×3 (04:58→21:30)
[2020-04-14] MEDS: NS 0.9% w/ 20 MEQ KCL 1,000 ML/1,000 ML BAG IV SCH (05:09)
[2020-04-14 05:54] LABS: Anion Gap 9 mmol/L (10-20); BUN (Urea Nitrogen) 9 mg/dL (8.4-25.7); Calc. Creatinine Clearance 130 mL/min (70-130); Calcium 7.8 mg/dL (7.8-10.44); Carbon Dioxide 22 mmol/L (22-29); Chloride 115 mmol/L (98-107); Estimated GFR-MDRD Greater than 90; Glucose 221 mg/dL (70-105); Magnesium 1.9 mg/dL (1.6-2.6); Phosphorus 1.5 mg/dL (2.3-4.7); Potassium 3.8 mmol/L (3.5-5.1); Sodium 142 mmol/L (136-145)
[2020-04-14] MEDS ORDERED: Magnesium 2 GM/50 ML 2 GM in Premix Bag 1 BAG IVPB SCH (06:30)
[2020-04-14] MEDS ORDERED: Potassium Phosphate 30 MMOL in Sodium Chloride 0.9% 250 ML 250 ML IVPB SCH (06:30)
--- NOTE | 2020-04-14 07:35 | PDOC.HOSPP ---
- Subjective Encounter Date: 04/14/20 Encounter Time: 08:24 Subjective: Pt is post-op day 3 of subtotal colectomy. He is resting comfortably. Pt does not complain of any pain but states that he is extremely hungry and would like to eat. He is currently NPO and awaiting surgery's decision about his diet - Objective Vital Signs & Weight: Vital Signs (12 hours) Temp Pulse Resp BP Pulse Ox 04/14/20 05:01 98.0 F 93 18 145/87 H 93 L 04/14/20 00:58 132/82 04/14/20 00:56 96 04/14/20 00:27 97.5 F L 96 18 157/106 H 93 L 04/13/20 21:08 97.5 F L 91 18 153/90 H 95 Weight Admit Weight 122 lb 3.2 oz Weight 142 lb 3.17 oz Most Recent Monitor Data Heart Rate from ECG 72 NIBP 149/85 NIBP BP-Mean 106 Respiration from ECG 12 SpO2 98 I&O: 04/13/20 04/14/20 04/15/20 06:59 06:59 06:59 Intake Total 3372.4 4284.2 Output Total 764 3910 Balance 2608.4 374.2 Result Diagrams: 04/14/20 08:46 04/14/20 05:03 Hospitalist ROS - Review of Systems Constitutional: denies: fever, chills, sweats, weakness, malaise, other Eyes: denies: pain, vision change, conjunctivae inflammation, eyelid inflammation, redness, other ENT: denies: ear pain, ear discharge, nose pain, nose discharge, nose congestion, mouth pain, mouth swelling, throat pain, throat swelling, other Respiratory: denies: cough, dry, shortness of breath, hemoptysis, SOB with excertion, pleuritic pain, sputum, wheezing, other Cardiovascular: denies: chest pain, palpitations, orthopnea, paroxysmal noc. dyspnea, edema, light headedness, other Gastrointestinal: denies: nausea, vomiting, abdominal pain, diarrhea, constipation, melena, hematochezia, other - Medication Medications: Active Medications Generic Name Dose Route Start Last Admin Trade Name Freq PRN Reason Stop Dose Admin Diphenhydramine HCl 25 mg 04/12/20 10:04 04/14/20 00:54 Diphenhydramine 50 Mg/Ml Vial IVP 25 mg Q3H PRN Administration Itching Enoxaparin Sodium 40 mg 04/12/20 21:00 04/13/20 20:07 Enoxaparin Sodium 40 Mg/0.4 Ml Syringe SC 40 mg 2100 PRINCE Administration Hydromorphone HCl 0 mg 04/12/20 10:04 04/13/20 10:16 Hydromorphone 10 Mg/100 Ml Cadd IVPB 10 mg INF PRN Administration Pain Potassium Chloride/Sodium Chloride 1,000 ml in 1,000 mls @ 125 mls/hr 04/07/20 22:30 04/14/20 05:09 Ns 0.9% W/ 20 Meq Kcl IV 1,000 mls .Q8H PRINCE Administration Cefoxitin Sodium/Dextrose 2 gm 50 mls @ 100 mls/hr 04/11/20 20:00 04/14/20 04:58 / Device IVPB 50 mls 0400,1200,2000 PRINCE Administration Magnesium Sulfate 2 gm/ Device 50 mls @ 50 mls/hr 04/14/20 06:30 04/14/20 07:03 IVPB 04/14/20 08:30 50 mls NOW PRINCE Administration Insulin Human Regular 0 units 04/07/20 22:10 04/14/20 05:09 Insulin Regular 300 Units/3 Ml Vial SC 2 unit .MODERATE SLIDING SC PRN Administration Moderate Correctional Scale Ketorolac Tromethamine 30 mg 04/12/20 10:04 04/13/20 09:59 Ketorolac Tromethamine 30 Mg/Ml Vial IVP 04/15/20 10:05 30 mg Q6H PRN Administration Moderate Pain (4-6) Sodium Chloride 10 ml 04/13/20 21:00 04/13/20 20:07 Flush - Normal Saline 10 Ml Syringe IVF 10 ml Q12HR PRINCE Administration - Exam General Appearance: NAD, awake alert Eye: PERRL, anicteric sclera ENT: normocephalic atraumatic Neck: supple Heart: RRR, no murmur, no gallops, no rubs Respiratory: CTAB, no wheezes, no rales, no ronchi Gastrointestinal: soft, non-tender, non-distended Gastrointestinal - other findings: Hypoactive bowel sounds Extremities: no cyanosis, 1+ LE edema (Mild edema bilaterally) Hosp A/P (1) Colonic mass Code(s): K63.89 - OTHER SPECIFIED DISEASES OF INTESTINE Status: Acute (2) Diabetes Code(s): E11.9 - TYPE 2 DIABETES MELLITUS WITHOUT COMPLICATIONS Status: Acute (3) Tobacco use Code(s): Z72.0 - TOBACCO USE Status: Chronic (4) Weight loss Status: Chronic - Plan * Abdominal pain- Colonoscopy findings noted- he has a large mass at about 40cm, which has almost complete obstruction of the bowel lumen. * Pt is post op day 3 following a subtotal colectomy. He is extubated and seems to be tolerating the pain well with BREWER HELPER pump. Encourage the pt to continue using the spirometer. * Oncology evaluated the patient and recommends chemotherapy once he recovers from the surgery. * Will start a Fentanyl Patch today, and continue Morphine IV for breakthrough pain: patient reports improvement of his pain. Will continue current pain regimen. * Weight loss- with moderate protein calorie malnutrition: Will be managed when he can tolerate p.o. * DM- continue SSI * Nutritional Support- tube feeding- with J- tube. Will await Surg consult about switching him to oral intake. * * Patient seen and examined and discussed with Santi Duarte Ms-3, and agree with his assessment. Patient is post -op day 3. He notes some pain after the removal of the dressing. His physical exam is essentially unchanged. He diet has been advanced to clear liquids today. Continue Symptom management.
[2020-04-14] MEDS: Pantoprazole 40 MG VIAL IVP SCH (08:29)
[2020-04-14] MEDS: HYDROmorphone 10 mg/100 ml CADD IVPB PRN (08:50)
[2020-04-14] MEDS ORDERED: Furosemide 20 MG/2 ML VIAL SLOW IVP SCH ×2 (09:00→17:00)
[2020-04-14 09:12] LABS: #Eosinphils 0.1 thou/uL (0.0-0.7); #Lymphocytes 1.3 thou/uL (1.20-3.40); #Monocytes 0.4 thou/uL (0.11-0.59); %Basophils 0.4 % (0.0-1.0); %Eosinophils 1.1 % (0.0-10.0); %Lymphocytes 10.2 % (21.0-51.0); %Monocytes 3.2 % (0.0-10.0); %Neutrophils 85.1 % (42.0-75.0); Hemoglobin 9.4 g/dL (14.0-18.0); Mean Corpuscular HGB CONC 32.1 g/dL (32.0-36.0); Mean Corpuscular Hemoglobin 26.5 pg (27.0-31.0); Mean Corpuscular Volume 82.6 fL (78.0-98.0); Mean Platelet Volume 6.4 fL (7.4-10.4); Platelet Count 580 thou/uL (130-400); RBC Distribution Width 14.5 % (11.5-14.5); Red Blood Cell (RBC) Count 3.56 mill/uL (4.70-6.10); White Blood Cell (WBC) Count 12.9 thou/uL (4.8-10.8)
[2020-04-14] MEDS ORDERED: traMADol HCl 50 MG TAB PO PRN (10:51)
--- NOTE | 2020-04-14 11:58 | PRG ---
DATE OF SERVICE: 04/14/2020 SUBJECTIVE: Mr. To is a 59-year-old man, postoperative day #3, status post laparotomy, subtotal colectomy with en bloc segmental small bowel resection and primary anastomosis. He is awake and alert today. Reports adequate pain control. His urinary output is adequate for this patient's age and weight. He is passing flatus, but has not had any bowel movement. OBJECTIVE: VITAL SIGNS: This morning include blood pressure 143/89, pulse is 93, respiratory rate is 20, maximum temperature in last 24 hours is 98.4 degrees Fahrenheit, oxygen saturation 94% on room air. HEENT: Pupils are equally round and reactive to light and accommodation. NECK: He has no jugular venous distention noted. HEART: Reveals regular rate and rhythm. No murmurs or gallops auscultated. LUNGS: Clear to auscultation bilaterally. Breathing, regular and nonlabored. ABDOMEN: Soft, nontender, and nondistended. Bowel sounds are present in all 4 quadrants. Incision is intact, clean, and dry. : He has moderate scrotal edema present. NEUROLOGIC: Reveals no focal deficits present. LABORATORY FINDINGS: Today include a CBC with 12,900 white blood cells, hemoglobin and hematocrit are stable at 9.4 and 29.4 respectively. Platelet count 580,000. Metabolic profile; sodium 142, potassium 3.8, chloride is 115, bicarb is 22, BUN 9, creatinine 0.56, glucose is 221, magnesium 1.9, and phosphorus is 1.5. IMPRESSION: 1. Postoperative day #3, status post exploratory laparotomy, subtotal colectomy with en bloc segmental small bowel resection and primary anastomosis. 2. Acute hypokalemia. 3. Acute hypomagnesemia. 4. Acute hypophosphatemia. PLAN: 1. Correct abnormal electrolytes. 2. Nasogastric tube was removed and the patient will be started on clear liquid diet. 3. We will encourage the patient to ambulate ad abhilash and also use incentive spirometer to correct for pulmonary atelectasis. 4. Pathology report is pending and the patient is being evaluated by Oncology for postoperative neoadjuvant chemotherapy. Job ID: [id number]
[2020-04-14] MEDS: Acetaminophen 500 MG TAB PO SCH ×3 (12:00→23:38)
--- NOTE | 2020-04-14 13:34 | PDOC.MOPN ---
Interval History: sitting in chair, taking po now - Vital Signs Vital Signs: Vital Signs (12 hours) Temp Pulse Resp BP Pulse Ox 04/14/20 11:44 97.5 F L 105 H 14 133/82 92 L 04/14/20 08:16 98.4 F 104 H 20 143/89 H 94 L 04/14/20 08:10 94 L 04/14/20 05:01 98.0 F 93 18 145/87 H 93 L Weight Admit Weight 122 lb 3.2 oz Weight 142 lb 3.17 oz Most Recent Monitor Data Heart Rate from ECG 72 NIBP 149/85 NIBP BP-Mean 106 Respiration from ECG 12 SpO2 98 - Physical Exam General: Alert, Oriented x3, No acute distress HEENT: Atraumatic, PERRLA, EOMI, Mucous membr. moist/pink Cardiovascular: Regular rate, Normal S1, Normal S2, No murmurs, Gallops, Rubs Abdomen: Other Neurological: Normal gait, Normal speech, Strength at 5/5 X4 ext, Normal tone, Sensation intact, Cranial nerves 3-12 NL, Reflexes 2+ - Labs Result Diagrams: 04/14/20 08:46 04/14/20 05:03 Lab results: Laboratory Results - last 24 hr 04/14/20 08:46: WBC 12.9 H, RBC 3.56 L, Hgb 9.4 L, Hct 29.4 L, MCV 82.6, MCH 26.5 L, MCHC 32.1, RDW 14.5, Plt Count 580 H, MPV 6.4 L, Neutrophils % 85.1 H, Lymphocytes % 10.2 L, Monocytes % 3.2, Eosinophils % 1.1, Basophils % 0.4, Neutrophils # 11.0 H, Lymphocytes # 1.3, Monocytes # 0.4, Eosinophils # 0.1, Basophils # 0.0 04/14/20 05:03: Sodium 142, Potassium 3.8, Chloride 115 H, Carbon Dioxide 22, Anion Gap 9 L, BUN 9, Creatinine 0.56 L, Estimated GFR (MDRD) Greater than 90, Glucose 221 H, Calcium 7.8, Phosphorus 1.5 L, Magnesium 1.9 04/11/20 21:53: CA 19-9 Antigen 21 Status: lab reviewed by me A/P - Problem (1) Adenocarcinoma, colon Current Visit: Yes Code(s): C18.9 - MALIGNANT NEOPLASM OF COLON, UNSPECIFIED Status: Acute - Plan Plan: continues to recover needs chemo in about 2 weeks financial counselor for assistance needs mediport will follow remotely
[2020-04-14] MEDS: Furosemide 20 MG/2 ML VIAL SLOW IVP SCH ×2 (15:42→21:29)
[2020-04-14] MEDS: Enoxaparin Sodium 40 MG/0.4 ML SYRINGE SC SCH (21:29)
[2020-04-14] MEDS: traMADol HCl 50 MG TAB PO PRN (21:29)
[2020-04-14] MEDS: Lorazepam 0.5 MG TAB PO PRN (21:45)
[2020-04-15] MEDS: Furosemide 20 MG/2 ML VIAL SLOW IVP SCH ×3 (04:35→14:26)
[2020-04-15] MEDS: traMADol HCl 50 MG TAB PO PRN (04:36)
[2020-04-15] MEDS: Acetaminophen 500 MG TAB PO SCH ×3 (06:28→17:14)
[2020-04-15] MEDS: Insulin Regular 300 UNITS/3 ML VIAL SC PRN ×4 (06:29→21:36)
[2020-04-15] MEDS ORDERED: Dextrose 50% Abboject 50 ML SYRINGE SLOW IVP PRN (07:09)
[2020-04-15] MEDS ORDERED: HumaLOG 300 UNITS/3 ML VIAL SC PRN (07:09)
[2020-04-15] MEDS ORDERED: Dextrose 5% in Water 1,000 ML IV PRN (07:09)
[2020-04-15] MEDS: Pantoprazole 40 MG VIAL IVP SCH (08:02)
[2020-04-15 08:45] LABS: ALT (SGPT) 10 U/L (8-55); AST (SGOT) 7 U/L (5-34); Albumin 2.2 g/dL (3.5-5.0); Alkaline Phosphatase 81 U/L (40-110); Anion Gap 11 mmol/L (10-20); BUN (Urea Nitrogen) 8 mg/dL (8.4-25.7); Bilirubin, Total 0.2 mg/dL (0.2-1.2); Calc. Creatinine Clearance 117 mL/min (70-130); Calcium 7.6 mg/dL (7.8-10.44); Carbon Dioxide 24 mmol/L (22-29); Chloride 107 mmol/L (98-107); Estimated GFR-MDRD Greater than 90; Globulin 2.1 g/dL (2.4-3.5); Glucose 250 mg/dL (70-105); Potassium 3.4 mmol/L (3.5-5.1); Protein, Total 4.3 g/dL (6.0-8.3); Sodium 139 mmol/L (136-145)
[2020-04-15] MEDS ORDERED: Potassium Chloride 20 MEQ TAB PO SCH (11:15)
[2020-04-15] MEDS: traMADol HCl 50 MG TAB PO SCH ×2 (11:49→17:15)
--- NOTE | 2020-04-15 14:08 | PDOC.HOSPP ---
- Subjective Encounter Date: 04/15/20 Encounter Time: 11:30 Subjective: is sitting in chair, at bedside no nausea, is tolerating liq diet, had bm this am says he is passing lot of urine - Objective Vital Signs & Weight: Vital Signs (12 hours) Temp Pulse Resp BP BP Pulse Ox 04/15/20 11:15 98 F 89 18 123/76 99 04/15/20 08:00 116/73 04/15/20 07:20 97.9 F 93 18 129/78 100 04/15/20 03:14 98.5 F 96 18 123/76 95 Weight Admit Weight 122 lb 3.2 oz Weight 142 lb 3.17 oz Most Recent Monitor Data Heart Rate from ECG 72 NIBP 149/85 NIBP BP-Mean 106 Respiration from ECG 12 SpO2 98 I&O: 04/14/20 04/15/20 04/16/20 06:59 06:59 05:59 Intake Total 4284.2 1970 30 Output Total 3910 2075 Balance 374.2 -105 30 Result Diagrams: 04/14/20 08:46 04/15/20 08:15 Additional Labs: Accuchecks 04/15/20 04/15/20 04/14/20 11:15 05:51 23:16 POC Glucose 215 H 236 H 224 H 04/14/20 04/14/20 04/14/20 18:25 11:12 06:06 POC Glucose 427 H 258 H 198 H 04/14/20 04/14/20 04/13/20 05:07 00:33 15:26 POC Glucose 194 H 257 H 189 H Hospitalist ROS - Medication Medications: Active Medications Generic Name Dose Route Start Last Admin Trade Name Freq PRN Reason Stop Dose Admin Acetaminophen 1,000 mg 04/14/20 12:00 04/15/20 11:48 Acetaminophen 500 Mg Tab PO 1,000 mg Q6HR PRINCE Administration Enoxaparin Sodium 40 mg 04/12/20 21:00 04/14/20 21:29 Enoxaparin Sodium 40 Mg/0.4 Ml Syringe SC 40 mg 2100 PRINCE Administration Insulin Human Regular 0 units 04/07/20 22:10 04/15/20 11:50 Insulin Regular 300 Units/3 Ml Vial SC 4 unit .MODERATE SLIDING SC PRN Administration Moderate Correctional Scale Lorazepam 0.25 mg 04/14/20 10:37 04/14/20 21:45 Lorazepam 0.5 Mg Tab PO 0.25 mg Q4H PRN Administration Anxiety Pantoprazole Sodium 40 mg 04/14/20 09:00 04/15/20 08:02 Pantoprazole 40 Mg Vial IVP 40 mg DAILY PRINCE Administration Tramadol HCl 100 mg 04/15/20 12:00 04/15/20 11:49 Tramadol Hcl 50 Mg Tab PO 100 mg Q6H PRINCE Administration - Exam General Appearance: awake alert Eye: PERRL, anicteric sclera ENT: no oropharyngeal lesions, moist mucosa Neck: supple, no JVD Heart: RRR, no murmur Respiratory: no wheezes, no rales Gastrointestinal: soft, normal bowel sounds, no guarding, no rigidity Extremities: no cyanosis, 2+ LE edema Neurological: cranial nerve grossly intact, no focal deficits Psychiatric: A&O x 3 Hosp A/P (1) Adenocarcinoma, colon Code(s): C18.9 - MALIGNANT NEOPLASM OF COLON, UNSPECIFIED Status: Acute (2) DM type 2 (diabetes mellitus, type 2) Status: Chronic Qualifiers: Diabetes mellitus intermediate card tender insulin use: without intermediate card tender use (3) Tobacco use Code(s): Z72.0 - TOBACCO USE Status: Chronic (4) Weight loss Status: Chronic (5) Postoperative anemia Code(s): D64.9 - ANEMIA, UNSPECIFIED Status: Acute - Plan is on liq diet add lantus bid low dose renetta hose for LE edema, lasix for mild anasarca mobilize as tolerated d/w patient and at bedside has invasive adenoca colon, s/p sub total colectomy with segmental small bowel resection 04/11
[2020-04-15] MEDS: Potassium Chloride 20 MEQ TAB PO SCH (17:14)
[2020-04-15] MEDS: Ibuprofen 600 MG TAB PO PRN (21:34)
[2020-04-15] MEDS: Insulin Glargine 10 UNITS in Pre-Filled Syringe SC SCH (21:35)
[2020-04-15] MEDS: Lorazepam 0.5 MG TAB PO PRN (21:35)
[2020-04-15] MEDS: Enoxaparin Sodium 40 MG/0.4 ML SYRINGE SC SCH (21:35)
[2020-04-16] MEDS: traMADol HCl 50 MG TAB PO SCH ×5 (00:42→23:58)
[2020-04-16] MEDS: Acetaminophen 500 MG TAB PO SCH ×5 (00:42→23:57)
[2020-04-16] MEDS: Furosemide 20 MG/2 ML VIAL SLOW IVP SCH ×2 (06:27→14:31)
[2020-04-16 07:38] LABS: Anion Gap 13 mmol/L (10-20); BUN (Urea Nitrogen) 11 mg/dL (8.4-25.7); Calc. Creatinine Clearance 137 mL/min (70-130); Calcium 7.9 mg/dL (7.8-10.44); Carbon Dioxide 24 mmol/L (22-29); Chloride 104 mmol/L (98-107); Estimated GFR-MDRD Greater than 90; Glucose 87 mg/dL (70-105); Potassium 3.7 mmol/L (3.5-5.1); Sodium 137 mmol/L (136-145)
[2020-04-16] MEDS: Potassium Chloride 20 MEQ TAB PO SCH ×2 (08:33→17:14)
[2020-04-16] MEDS: Pantoprazole 40 MG VIAL IVP SCH (08:33)
[2020-04-16] MEDS: Insulin Glargine 10 UNITS in Pre-Filled Syringe SC SCH (08:49)
--- NOTE | 2020-04-16 12:18 | PDOC.HOSPP ---
- Subjective Encounter Date: 04/16/20 Encounter Time: 09:15 Subjective: feels better, is tolerating oral solid diet having regular bm, no nausea pain is better is using i.spirometer his fingerstick glucose was around 40's this am and was sweating, has resolved now. - Objective Vital Signs & Weight: Vital Signs (12 hours) Temp Pulse Resp BP Pulse Ox 04/16/20 07:49 97.1 F L 78 18 138/87 100 Weight Admit Weight 122 lb 3.2 oz Weight 142 lb 3.17 oz Most Recent Monitor Data Heart Rate from ECG 72 NIBP 149/85 NIBP BP-Mean 106 Respiration from ECG 12 SpO2 98 I&O: 04/15/20 04/16/20 04/17/20 07:59 06:59 06:59 Intake Total 480 Output Total Balance 480 Result Diagrams: 04/14/20 08:46 04/16/20 07:06 Additional Labs: Accuchecks 04/16/20 04/15/20 04/15/20 11:28 21:33 15:56 POC Glucose 132 H 226 H 214 H Hospitalist ROS - Medication Medications: Active Medications Generic Name Dose Route Start Last Admin Trade Name Freq PRN Reason Stop Dose Admin Acetaminophen 1,000 mg 04/14/20 12:00 04/16/20 11:41 Acetaminophen 500 Mg Tab PO 1,000 mg Q6HR PRINCE Administration Enoxaparin Sodium 40 mg 04/12/20 21:00 04/15/20 21:35 Enoxaparin Sodium 40 Mg/0.4 Ml Syringe SC 40 mg 2100 PRINCE Administration Furosemide 20 mg 04/15/20 14:00 04/16/20 06:27 Furosemide 20 Mg/2 Ml Vial SLOW IVP 20 mg 0600,1400 PRINCE Administration Ibuprofen 600 mg 04/15/20 11:14 04/15/20 21:34 Ibuprofen 600 Mg Tab PO 600 mg Q6H PRN Administration breakthrough pain Insulin Human Regular 0 units 04/07/20 22:10 04/15/20 21:36 Insulin Regular 300 Units/3 Ml Vial SC 4 unit .MODERATE SLIDING SC PRN Administration Moderate Correctional Scale Lorazepam 0.25 mg 04/14/20 10:37 04/15/20 21:35 Lorazepam 0.5 Mg Tab PO 0.25 mg Q4H PRN Administration Anxiety Pantoprazole Sodium 40 mg 04/14/20 09:00 04/16/20 08:33 Pantoprazole 40 Mg Vial IVP 40 mg DAILY PRINCE Administration Potassium Chloride 40 meq 04/15/20 17:00 04/16/20 08:33 Potassium Chloride 20 Meq Tab PO 40 meq BID-WM PRINCE Administration Tramadol HCl 100 mg 04/15/20 12:00 04/16/20 11:42 Tramadol Hcl 50 Mg Tab PO 100 mg Q6H PRINCE Administration - Exam General Appearance: awake alert Eye: PERRL, anicteric sclera ENT: no oropharyngeal lesions, moist mucosa Neck: supple, no JVD Heart: RRR, no murmur Respiratory: no wheezes, no rales Gastrointestinal: soft, normal bowel sounds, no guarding, no rigidity Extremities: no cyanosis, 1+ LE edema Neurological: cranial nerve grossly intact, no focal deficits Psychiatric: normal affect, A&O x 3 Hosp A/P (1) Adenocarcinoma, colon Code(s): C18.9 - MALIGNANT NEOPLASM OF COLON, UNSPECIFIED Status: Acute (2) DM type 2 (diabetes mellitus, type 2) Status: Chronic Qualifiers: Diabetes mellitus collection systems modeler insulin use: without collection systems modeler use (3) Tobacco use Code(s): Z72.0 - TOBACCO USE Status: Chronic (4) Weight loss Status: Chronic (5) Postoperative anemia Code(s): D64.9 - ANEMIA, UNSPECIFIED Status: Acute - Plan is on solid diet reduce lantus bid to 5 u renetta hose for LE edema, lasix for mild anasarca mobilize as tolerated d/w patient at bedside has invasive adenoca colon, s/p sub total colectomy with segmental small bowel resection 04/11 Likely dc plan home tomorrow afternoon after 3 doses of lasix if he remains stable and ambulating
[2020-04-16] MEDS: Ibuprofen 600 MG TAB PO PRN ×2 (14:41→21:07)
[2020-04-16] MEDS: Lorazepam 0.5 MG TAB PO PRN ×2 (15:23→21:08)
[2020-04-16] MEDS: Insulin Regular 300 UNITS/3 ML VIAL SC PRN (17:16)
[2020-04-16] MEDS: Enoxaparin Sodium 40 MG/0.4 ML SYRINGE SC SCH (21:08)
[2020-04-16] MEDS: Insulin Glargine 5 UNITS in Pre-Filled Syringe SC SCH (21:25)
[2020-04-17] MEDS: Lorazepam 0.5 MG TAB PO PRN ×2 (02:31→20:32)
[2020-04-17] MEDS: diphenhydrAMINE 25 MG CAP PO PRN ×2 (03:08→20:25)
[2020-04-17] MEDS: traMADol HCl 50 MG TAB PO SCH ×4 (06:50→23:34)
[2020-04-17] MEDS: Acetaminophen 500 MG TAB PO SCH ×4 (06:50→23:32)
[2020-04-17] MEDS: Furosemide 20 MG/2 ML VIAL SLOW IVP SCH ×2 (06:51→16:19)
[2020-04-17 08:13] LABS: Anion Gap 9 mmol/L (10-20); BUN (Urea Nitrogen) 11 mg/dL (8.4-25.7); Calc. Creatinine Clearance 134 mL/min (70-130); Calcium 7.7 mg/dL (7.8-10.44); Carbon Dioxide 25 mmol/L (22-29); Chloride 104 mmol/L (98-107); Estimated GFR-MDRD Greater than 90; Glucose 133 mg/dL (70-105); Potassium 4.3 mmol/L (3.5-5.1); Sodium 134 mmol/L (136-145)
[2020-04-17] MEDS: Potassium Chloride 20 MEQ TAB PO SCH ×2 (10:06→16:18)
[2020-04-17] MEDS: Pantoprazole 40 MG VIAL IVP SCH (10:07)
[2020-04-17] MEDS: Insulin Glargine 5 UNITS in Pre-Filled Syringe SC SCH ×2 (10:07→22:00)
[2020-04-17] MEDS: Insulin Regular 300 UNITS/3 ML VIAL SC PRN ×2 (11:15→16:19)
--- NOTE | 2020-04-17 12:51 | PDOC.HOSPP ---
- Subjective Encounter Date: 04/17/20 Encounter Time: 12:30 Subjective: Patient seen and examined for new diagnosis of colon adenocarcinoma. Continues to have abdominal discomfort which is generalized moderate in intensity. No nausea, vomiting or abdominal pain. Had several bowel movements. - Objective Vital Signs & Weight: Vital Signs (12 hours) Temp Pulse Resp BP Pulse Ox 04/17/20 11:56 98.2 F 89 16 127/78 98 04/17/20 08:00 98.0 F 85 14 135/82 100 Weight Admit Weight 122 lb 3.2 oz Weight 142 lb 3.17 oz Most Recent Monitor Data Heart Rate from ECG 72 NIBP 149/85 NIBP BP-Mean 106 Respiration from ECG 12 SpO2 98 I&O: 04/16/20 04/17/20 04/18/20 06:59 06:59 06:59 Intake Total 1910 960 Output Total Balance 1910 960 Result Diagrams: 04/14/20 08:46 04/17/20 06:58 Additional Labs: Accuchecks 04/17/20 04/16/20 04/16/20 11:13 21:06 15:35 POC Glucose 170 H 139 H 178 H 04/16/20 04/16/20 06:32 06:29 POC Glucose 42 L* 50 L* Hospitalist ROS - Review of Systems Respiratory: denies: cough, dry, shortness of breath, hemoptysis, SOB with excertion, pleuritic pain, sputum, wheezing, other Cardiovascular: denies: chest pain, palpitations, orthopnea, paroxysmal noc. dyspnea, edema, light headedness, other - Medication Medications: Active Medications Generic Name Dose Route Start Last Admin Trade Name Freq PRN Reason Stop Dose Admin Acetaminophen 1,000 mg 04/14/20 12:00 04/17/20 11:11 Acetaminophen 500 Mg Tab PO 1,000 mg Q6HR PRINCE Administration Diphenhydramine HCl 25 mg 04/17/20 02:52 04/17/20 03:08 Diphenhydramine 25 Mg Cap PO 25 mg HSPRN PRN Administration Itching & Insomnia Enoxaparin Sodium 40 mg 04/12/20 21:00 04/16/20 21:08 Enoxaparin Sodium 40 Mg/0.4 Ml Syringe SC 40 mg 2100 PRINCE Administration Furosemide 20 mg 04/15/20 14:00 04/17/20 06:51 Furosemide 20 Mg/2 Ml Vial SLOW IVP 20 mg 0600,1400 PRINCE Administration Insulin Glargine 5 units/ 0.05 mls @ 0 mls/hr 04/16/20 21:00 04/17/20 10:07 Miscellaneous Medication SC 0.05 mls BID PRINCE Administration Ibuprofen 600 mg 04/15/20 11:14 04/16/20 21:07 Ibuprofen 600 Mg Tab PO 600 mg Q6H PRN Administration breakthrough pain Insulin Human Regular 0 units 04/07/20 22:10 04/17/20 11:15 Insulin Regular 300 Units/3 Ml Vial SC 2 unit .MODERATE SLIDING SC PRN Administration Moderate Correctional Scale Lorazepam 0.25 mg 04/14/20 10:37 04/17/20 02:31 Lorazepam 0.5 Mg Tab PO 0.25 mg Q4H PRN Administration Anxiety Pantoprazole Sodium 40 mg 04/14/20 09:00 04/17/20 10:07 Pantoprazole 40 Mg Vial IVP 40 mg DAILY PRINCE Administration Potassium Chloride 40 meq 04/15/20 17:00 04/17/20 10:06 Potassium Chloride 20 Meq Tab PO 40 meq BID-WM PRINCE Administration Tramadol HCl 100 mg 04/15/20 12:00 04/17/20 11:12 Tramadol Hcl 50 Mg Tab PO 100 mg Q6H PRINCE Administration - Exam General Appearance: ill appearing Heart: RRR, no gallops Respiratory: no wheezes, no ronchi Gastrointestinal: soft, normal bowel sounds, no guarding, no rigidity Gastrointestinal - other findings: Mild generalized tenderness Extremities: no cyanosis, no clubbing Neurological: no new deficit Hosp A/P - Plan DVT proph w/SCDs Abdominal pain/weight loss due to new diagnosis of invasive colonic adenoca rcinoma S/p colonoscopy on 04/10 S/p subtotal colectomy Diabetes mellitus type 2 with hypoglycemia Tobacco dependence Chronic anemia Plan: Continue supportive care. Case discussed with surgery. Patient continues to be in moderate amount of pain. Continue current pain medications. Continue cur rent dose of Lantus. Continue sliding scale. Case discussed with oncology nurse practitioner who recommended Mediport placement preferably prior to discharge. Surgery team updated. Continue Lovenox for DVT prophylaxis. Continue other medications as above. Continue PPIs. Recheck basic metabolic profile in a.m.
--- NOTE | 2020-04-17 14:01 | PRG ---
DATE OF SERVICE: 04/17/2020 SUBJECTIVE: Mr. To is a 59-year-old man. The patient is postoperative day #5, status post exploratory laparotomy with subtotal colectomy and en bloc segmental small bowel resection with primary anastomosis. The patient diagnosed with stage III moderately differentiated adenocarcinoma of the colon. He is awake and alert today. Reports adequate pain control. He is tolerating general diet, having bowel movements. Urinary output is adequate. OBJECTIVE: VITAL SIGNS: Today include blood pressure 127/78, pulse 89, respiratory rate is 16, temperature 98.2 degrees Fahrenheit, oxygen saturation 98% on room air. HEART: Reveals regular rate and rhythm. LUNGS: Clear to auscultation bilaterally. Breathing regular and unlabored. ABDOMEN: Soft and nondistended. Incision is intact, clean, and dry. He has incisional tenderness to palpation. Bowel sounds are present in all 4 quadrants. He has no peritoneal signs on examination. NEUROLOGIC: Reveals no focal deficits present. LABORATORY FINDINGS: Today includes a CBC with 12,900 white blood cells, hemoglobin and hematocrit are 9.4 and 29.4 respectively, platelet count is 580,000. IMPRESSION: Postop day #5, status post exploratory laparotomy with subtotal colectomy with primary anastomosis for stage III moderately differentiated adenocarcinoma of the colon. PLAN: We will place MediPort in the morning for neoadjuvant chemotherapy at the discretion of the oncologist. The patient certainly will be discharged home tomorrow after surgery. Above findings and plan discussed with the patient who indicates understanding of information given. I encouraged him to ambulate ad abhilash and encouraged adequate nutritional intake. Job ID: [id number]
[2020-04-17] MEDS: Ibuprofen 600 MG TAB PO PRN (16:18)
[2020-04-17] MEDS: Enoxaparin Sodium 40 MG/0.4 ML SYRINGE SC SCH (20:25)
[2020-04-18] MEDS: Acetaminophen 500 MG TAB PO SCH ×3 (05:50→17:49)
[2020-04-18] MEDS: traMADol HCl 50 MG TAB PO SCH ×3 (05:50→17:50)
[2020-04-18] MEDS: Furosemide 20 MG/2 ML VIAL SLOW IVP SCH (05:56)
[2020-04-18 06:42] LABS: Phosphorus 2.9 mg/dL (2.3-4.7)
[2020-04-18 06:47] LABS: Band 2 % (5-11); Eosinophils 6 % (0-10); Hemoglobin 8.4 g/dL (14.0-18.0); Hypochromia SLIGHT = 6-15 cells (100X) (0-5/hpf); Lymphocytes 24 % (21-51); MDiff Complete? YES; Mean Corpuscular HGB CONC 32.6 g/dL (32.0-36.0); Mean Corpuscular Hemoglobin 26.4 pg (27.0-31.0); Mean Platelet Volume 6.4 fL (7.4-10.4); Monocytes 3 % (0-10); Neutrophil 65 % (42-75); Platelet Count 429 thou/uL (130-400); Platelet Morphology Comment Appears Increased; RBC Distribution Width 14.3 % (11.5-14.5); Red Blood Cell (RBC) Count 3.17 mill/uL (4.70-6.10); White Blood Cell (WBC) Count 9.9 thou/uL (4.8-10.8)
[2020-04-18 06:49] LABS: Anion Gap 12 mmol/L (10-20); BUN (Urea Nitrogen) 10 mg/dL (8.4-25.7); Calc. Creatinine Clearance 137 mL/min (70-130); Calcium 8.2 mg/dL (7.8-10.44); Carbon Dioxide 25 mmol/L (22-29); Chloride 103 mmol/L (98-107); Estimated GFR-MDRD Greater than 90; Glucose 86 mg/dL (70-105); Magnesium 1.2 mg/dL (1.6-2.6); Potassium 3.9 mmol/L (3.5-5.1); Sodium 136 mmol/L (136-145)
[2020-04-18] MEDS ORDERED: Potassium Phosphate 30 MMOL, Magnesium Sulfate 4 GM in Sodium Chloride 0.9% 250 ML 250 ML IVPB SCH (08:45)
[2020-04-18] MEDS: Ferrous Sulfate 325 MG TAB PO SCH ×2 (09:21→20:53)
[2020-04-18] MEDS: Pantoprazole 40 MG VIAL IVP SCH (09:21)
[2020-04-18] MEDS: Ascorbic Acid 500 mg Chewable Tablet PO SCH ×2 (09:21→20:53)
[2020-04-18] MEDS: Insulin Glargine 5 UNITS in Pre-Filled Syringe SC SCH ×2 (09:21→20:56)
[2020-04-18] MEDS ORDERED: Fentanyl 100 MCG/2 ML VIAL ONE ×2 (10:09→10:39)
[2020-04-18] MEDS ORDERED: PROPOFOL 40 ML ONE (10:39)
[2020-04-18] MEDS ORDERED: Bupivacaine/Epinephrine 0.25% 30 ML VIAL ONE (10:46)
[2020-04-18] MEDS ORDERED: Sodium Chloride 0.9% 20 ML ONE (10:46)
[2020-04-18] MEDS ORDERED: Lidocaine 2% PF 5 ML VIAL ONE (11:51)
[2020-04-18] MEDS ORDERED: Ondansetron HCl/PF 4 MG/2 ML Vial IVP PRN (12:32)
[2020-04-18] MEDS ORDERED: Promethazine HCl 25 MG/ML VIAL SLOW IVP PRN (12:32)
[2020-04-18] MEDS ORDERED: Promethazine HCl 25 MG/ML VIAL IM PRN (12:32)
[2020-04-18] MEDS ORDERED: PROPOFOL 200 MG/20 ML VIAL ONE (12:35)
--- NOTE | 2020-04-18 13:06 | OP ---
DATE OF PROCEDURE: 04/18/2020 PREOPERATIVE DIAGNOSIS: Colon cancer. POSTOPERATIVE DIAGNOSIS: Colon cancer. PROCEDURE PERFORMED: Placement of low-profile Port-A-Cath under fluoroscopy. ANESTHESIA: Monitored anesthesia care. ESTIMATED BLOOD LOSS: Negligible. TOTAL FLUORO TIME: 32 seconds. Sponge and instrument counts were verified as correct x2. COMPLICATIONS: None apparent. INDICATIONS FOR PROCEDURE: A 59-year-old man with history of colon cancer who has recently underwent subtotal colectomy, found with moderately-differentiated adenocarcinoma with lymph node invasion. I was asked to place the MediPort for postoperative neoadjuvant chemotherapy. DESCRIPTION OF PROCEDURE: Informed consent was obtained from the patient who was brought to the operating room and placed in supine position. Under monitored anesthesia care, left chest wall was sterilely prepped and draped in usual fashion. He has previous triple-lumen central venous catheter. The catheter and the chest wall were widely prepped and draped. A guidewire was passed through the distal port and advanced into the left subclavian vein without resistance. The central venous catheter was then withdrawn over the guidewire. Introducer sheath and dilator were then passed as a unit over the guidewire and advanced into the left subclavian vein without resistance. Proper sitting confirmed by fluoroscopy. Dilator and guidewire were removed as a unit leaving the introducer sheath in place, through which the catheter was advanced into the left subclavian vein without resistance. The sheath was then peeled away. The catheter was then withdrawn to length under fluoroscopy. Left chest wall was infiltrated with 0.25% Marcaine with epinephrine in the area chosen for the seating of the Port-A-Cath. An oblique incision was made here using 15 scalpel. Incision was carried through subcutaneous tissues, maintaining hemostasis using cautery. The subcutaneous pocket was raised, port was connected to the catheter, which was then placed under the subcutaneous pocket and secured to anterior chest wall using interrupted sutures of 3-0 Prolene. A Corbett needle was inserted into the port, aspirated dark venous blood and was then flushed with saline followed by heparin. Subcutaneous tissues were approximated over the port using interrupted sutures of 3-0 Vicryl. Skin incision was closed using 4-0 Monocryl suture in subcuticular fashion. Dermabond was applied over incisional closure. The previous puncture site was closed using a Band-Aid. Total fluoroscopy time was 32 seconds. The patient tolerated the procedure without any apparent complication and was returned to recovery room in satisfactory condition. Job ID: [id number]
--- NOTE | 2020-04-18 13:10 | RAD ---
PORTABLE CHEST 1 VIEW: Date: 04/18/2020 Time: 1252 hours HISTORY: MediPort placement. COMPARISON: 04/11/2020. FINDINGS/IMPRESSION: There has been interval removal of the left-sided central line, endotracheal and nasogastric tubes. T he heart size is normal. The aorta is tortuous. A left subclavian Port-A-Cath has been placed with ti p in the projection of the SVC. No lobar consolidation, pneumothoraces, or pleural effusions are seen . POS: OFF
--- NOTE | 2020-04-18 13:35 | PDOC.HOSPP ---
- Subjective Encounter Date: 04/18/20 Encounter Time: 10:00 Subjective: is npo for kelsey says he couldn't sleep all night due to abd pain no nausea, is tolerating oral diet - Objective Vital Signs & Weight: Vital Signs (12 hours) Temp Pulse Resp BP Pulse Ox 04/18/20 08:05 98.9 F 95 18 120/74 98 04/18/20 04:32 98.3 F 86 16 137/82 99 Weight Admit Weight 122 lb 3.2 oz Weight 142 lb 3.17 oz Most Recent Monitor Data Heart Rate from ECG 72 NIBP 149/85 NIBP BP-Mean 106 Respiration from ECG 12 SpO2 98 I&O: 04/17/20 04/18/20 04/19/20 06:59 06:59 06:59 Intake Total 1909 244 Balance 1909 2440 Result Diagrams: 04/18/20 06:05 04/18/20 06:05 Additional Labs: Accuchecks 04/18/20 04/17/20 04/17/20 05:29 21:35 15:58 POC Glucose 92 219 H 160 H Hospitalist ROS - Medication Medications: Active Medications Generic Name Dose Route Start Last Admin Trade Name Freq PRN Reason Stop Dose Admin Acetaminophen 1,000 mg 04/14/20 12:00 04/18/20 05:50 Acetaminophen 500 Mg Tab PO Not Given Q6HR PRINCE Ascorbic Acid 500 mg 04/18/20 09:00 04/18/20 09:21 Ascorbic Acid 500 Mg Chewable Tablet PO Not Given BID PRINCE Diphenhydramine HCl 25 mg 04/17/20 02:52 04/17/20 20:25 Diphenhydramine 25 Mg Cap PO 25 mg HSPRN PRN Administration Itching & Insomnia Enoxaparin Sodium 40 mg 04/12/20 21:00 04/17/20 20:25 Enoxaparin Sodium 40 Mg/0.4 Ml Syringe SC 40 mg 2100 PRINCE Administration Ferrous Sulfate 325 mg 04/18/20 09:00 04/18/20 09:21 Ferrous Sulfate 325 Mg Tab PO Not Given BID [facility] Insulin Glargine 5 units/ 0.05 mls @ 0 mls/hr 04/16/20 21:00 04/18/20 09:21 Miscellaneous Medication SC Not Given BID [facility] Ibuprofen 600 mg 04/15/20 11:14 04/17/20 16:18 Ibuprofen 600 Mg Tab PO 600 mg Q6H PRN Administration breakthrough pain Lorazepam 0.25 mg 04/14/20 10:37 04/17/20 20:32 Lorazepam 0.5 Mg Tab PO 0.25 mg Q4H PRN Administration Anxiety Pantoprazole Sodium 40 mg 04/14/20 09:00 04/18/20 09:21 Pantoprazole 40 Mg Vial IVP Not Given DAILY PRINCE Tramadol HCl 100 mg 04/15/20 12:00 04/18/20 05:50 Tramadol Hcl 50 Mg Tab PO Not Given Q6H PRINCE - Exam General Appearance: awake alert Eye: PERRL, anicteric sclera ENT: no oropharyngeal lesions, moist mucosa Neck: supple, no JVD Heart: RRR, no murmur, no gallops Respiratory: no wheezes, no rales Gastrointestinal: soft, normal bowel sounds, no guarding, no rigidity Extremities: no cyanosis, no edema Neurological: cranial nerve grossly intact, no focal deficits Psychiatric: normal affect, A&O x 3 Hosp A/P (1) Adenocarcinoma, colon Code(s): C18.9 - MALIGNANT NEOPLASM OF COLON, UNSPECIFIED Status: Acute (2) DM type 2 (diabetes mellitus, type 2) Status: Chronic Qualifiers: Diabetes mellitus [facility] insulin use: without [facility] use (3) Tobacco use Code(s): Z72.0 - TOBACCO USE Status: Chronic (4) Weight loss Status: Chronic (5) Postoperative anemia Code(s): D64.9 - ANEMIA, UNSPECIFIED Status: Acute - Plan is on solid diet on lantus bid to 5 u edema has completely resolved this am mobilize as tolerated d/w patient at bedside has invasive adenoca colon, s/p sub total colectomy with segmental small bowel resection 04/11 Likely dc plan home either today or am (has lot of abd pain, sutures look clean, is tolerating oral diet, is worried his girlfriend will be scared at home)
[2020-04-18] MEDS: Ibuprofen 600 MG TAB PO PRN (20:53)
[2020-04-18] MEDS: diphenhydrAMINE 25 MG CAP PO PRN (20:53)
[2020-04-18] MEDS: Enoxaparin Sodium 40 MG/0.4 ML SYRINGE SC SCH (20:54)
[2020-04-18] MEDS ORDERED: Amoxicillin/Potassium Clav 875 MG TAB PO SCH (21:00)
[2020-04-18] MEDS ORDERED: Amoxicillin/Potassium Clav 600 mg/5 ml Oral Suspension PO SCH (21:00)
[2020-04-18] MEDS: Lorazepam 0.5 MG TAB PO PRN (21:11)
[2020-04-19] MEDS: Acetaminophen 500 MG TAB PO SCH ×3 (00:21→12:54)
[2020-04-19] MEDS: traMADol HCl 50 MG TAB PO SCH ×3 (00:22→12:55)
[2020-04-19] MEDS: Ascorbic Acid 500 mg Chewable Tablet PO SCH (08:18)
[2020-04-19] MEDS: Ferrous Sulfate 325 MG TAB PO SCH (08:18)
[2020-04-19] MEDS: Insulin Glargine 5 UNITS in Pre-Filled Syringe SC SCH (08:19)
[2020-04-19] MEDS: Pantoprazole 40 MG VIAL IVP SCH (08:19)
[2020-04-19] MEDS: Lorazepam 0.5 MG TAB PO PRN (09:56)
[2020-04-19 16:15] VITALS: BP 122/73; TEMP 98.9
[2020-04-19] MEDS: Ibuprofen 600 MG TAB PO PRN (16:27)
--- NOTE | 2020-04-19 18:03 | DIS ---
DATE OF ADMISSION: 04/07/2020 DATE OF DISCHARGE: 04/19/2020 DISCHARGE DISPOSITION: Home. PRIMARY DISCHARGE DIAGNOSES: Invasive adenocarcinoma of colon, weight loss, diabetes mellitus type 2, acute blood loss anemia secondary to cancer and postop status, status post subtotal colectomy with segmental small bowel resection done on 04/11, status post MediPort placement. PROCEDURES DONE DURING HOSPITALIZATION: Abdominal and pelvic CAT scan done on the day of admission showed wall thickening in the colon at the splenic flexure region beginning within the transverse colon and extending into the proximal descending colon. There is also thickening to the right colon bowel wall, abnormal small bowel pattern with possible proximal intussusception, atrophic pancreas, fatty liver. The colonoscopy with biopsies was done on 04/10/[address] Vega Bain. This showed near obstructing circumferential mass at 40 cm likely malignant, which was biopsied and the area was tattooed. Endoscope was unable to be advanced beyond 40 cm. There were internal hemorrhoids noted. Histopathology of the colonoscopy biopsy showed invasive colonic adenocarcinoma, which was moderately differentiated. The patient has had exploratory laparotomy with subtotal colectomy and segmental small-bowel resection in an en bloc fashion, enteroenterostomy, enterocolostomy. All of these procedures were done on 04/11/[address] Westfall. Histopathology of surgical specimen shows invasive adenocarcinoma, which is moderately differentiated. The tumor was invading through the muscularis propria into the adjacent adipose tissue, but does not involve the cirrhosal surface. No lymphovascular invasion was seen. 1 of 36 lymph nodes was positive for metastasis. The lymph node involved was in close relation with tumor. He has had a Port-A-Cath placed by Dr. Westfall on 04/18/2020. A total of 2 units of packed cells were transfused on 04/11/2020. Discharge H and H 8.4 and 25, platelet count 429. Discharge BUN and creatinine 10 and 0.5. COVID-19 PCR was not detected on 04/08/2020. Carcinoembryonic antigen levels were 4.02 ng/mL. HbA1c was greater than 14. DISCHARGE MEDICATIONS: 1. Ferrous sulfate 325 mg p.o. twice daily. 2. Glipizide 5 mg p.o. daily. 3. Motrin 600 mg p.o. q.6 hourly p.r.n. 4. Multivitamin one tablet once daily. 5. Ultram 50 mg 3 times daily p.r.n. 6. Vitamin C 500 mg p.o. daily. ALLERGIES: NO KNOWN DRUG ALLERGIES. DISCHARGE PLAN: The patient to follow up with Dr. Westfall on 05/02/2020 at 2:30 p.m. He needs to follow up with Dr. Solis on 05/01/2020 at 1:15 p.m. Mr. To also needs to follow up with his primary care physician in his local area in a week. He is also advised to check fingerstick glucose twice daily and record for a period of 10 days to follow up with his primary care physician. BRIEF COURSE DURING HOSPITALIZATION: The patient initially got admitted on the 08 of April with complaints of abdominal pain. Initial CAT scan was suspicious for multiple large bowel wall thickenings. He has had consultation with Dr. Vega Bain. The patient also had history of weight loss and was anemic. In view of this history, he has had a colonoscopy done, which showed near obstructive lesion 40 cm from the anal verge. He has had consultation with Dr. Westfall. A subtotal colectomy with segmental small bowel resection was done. All of his biopsies and surgical specimens have revealed invasive adenocarcinoma. Prior to discharge, he is tolerating oral solid diet and having regular bowel movements. He has had a Port-A-Cath placed for chemotherapy likely in 2 to 3 weeks after discharge. He is hemodynamically stable and will be shortly discharged home. Mr. Yousuf Watkins is also ambulating on the floor and in the hallways. He is hemodynamically stable and will be shortly discharged home. Please note, I have seen and examined the patient on the day of discharge. Job ID: [id number]
--- NOTE | 2020-04-21 04:50 | PQF ---
CLINICAL DOCUMENTATION CLARIFICATION FORM: Dear :Kevin Westfall Date / Time:04/21/201 Please exercise your independent, professional judgment in responding to the clarification form. Clinical indicators are provided on the bottom of this form for your review Please check appropriate box(es): In the description of the operative procedure a Perforated Cecum was noted by the surgeon. If possible would you please further clarify if this was: [ ] Incidental occurrence inherent in the surgical procedure [ ] Complication of the procedure [ x ] Other diagnosis, please specify _ Ischemic Bowel perforation present on admission [ ] Unable to determine Physician Signature: Date/Time: For continuity of documentation, please document condition throughout progress notes and discharge summary. Thank You. To be completed by CDI/Coding staff for physician review: Present Clinical Indicators - Signs / Symptoms / Labs Results and Location in Medical Record [X] Perforated cecum into the right anterior abdominal wall Operative report 04/11 Dr Westfall [X] Findings are consistent with perforated cecum Operative report 04/11 Dr Westfall [X] We were able to bluntly dissect the cecum off the abdominal wall Operative report 04/11 Dr Westfall [X] We were able to close the cecal perforation with 3-0 silk suture Operative report 04/11 Dr Westfall Present Risk Factors Results and Location in Medical Record [X] Partial large bowel obstruction Operative report 04/11 Dr Westfall [X] Colon Cancer Operative report 04/11 Dr Westfall [X] Metastatic lesions Operative report 04/11 Dr Westfall Present Treatments Results and Location in Medical Record [X] Segmental bowel resection in an en bloc fashion Operative report 04/11 Dr Westfall [X] Enteroenterostomy Operative report 04/11 Dr Westfall CDS/Pipefitter Helper Signature: Rosenda Patricio Phone #: [phone] Date/Time: 04/21/2020 [id number] This is a permanent part of the Medical Record [facility]
--- NOTE | 2020-04-22 14:22 | EKG ---
Test Reason : Blood Pressure : / mmHG Vent. Rate : 096 BPM Atrial Rate : 096 BPM P-R Int : 144 ms QRS Dur : 070 ms QT Int : 392 ms P-R-T Axes : 056 045 066 degrees QTc Int : 495 ms Normal sinus rhythm Possible Left atrial enlargement Nonspecific T wave abnormality Abnormal ECG Confirmed by JUNI MENDOZA DO ([id number]), associate editor CHAN MENARD ([id number]) on 04/22/2020 2:22:34 PM Referred By: Confirmed By:JUNI MENDOZA DO
== END 2020-04-19 17:07 | disposition home or self-care (01) | DRG 329 ==
LOC: ERS 17:16 → T4-B 21:18 → PACU-TCU 04-11 17:15 → CCU 04-12 05:54 → SJJU 04-13 18:03
PROVIDERS: ADMIT Internal Medicine; ATTEND Internal Medicine
PROC: 0DBP8ZZ Excision of Rectum, Via Natural or Artificial Opening Endoscopic (ICD-10-PCS; 2020-04-10)
PROC: 0DBE8ZX Excision of Large Intestine, Via Natural or Artificial Opening Endoscopic, Diagnostic (ICD-10-PCS; 2020-04-10)
PROC: 0DBE0ZZ Excision of Large Intestine, Open Approach (ICD-10-PCS; principal; 2020-04-11)
PROC: 0DB80ZZ Excision of Small Intestine, Open Approach (ICD-10-PCS; 2020-04-11)
PROC: 0JD80ZZ Extraction of Abdomen Subcutaneous Tissue and Fascia, Open Approach (ICD-10-PCS; 2020-04-11)
PROC: 0D180Z4 Bypass Small Intestine to Cutaneous, Open Approach (ICD-10-PCS; 2020-04-11)
PROC: 05H633Z Insertion of Infusion Device into Left Subclavian Vein, Percutaneous Approach (ICD-10-PCS; 2020-04-11)
PROC: 3E0M05Z Introduction of Adhesion Barrier into Peritoneal Cavity, Open Approach (ICD-10-PCS; 2020-04-11)
PROC: 5A1935Z Respiratory Ventilation, Less than 24 Consecutive Hours (ICD-10-PCS; 2020-04-11)
PROC: 30233N1 Transfusion of Nonautologous Red Blood Cells into Peripheral Vein, Percutaneous Approach (ICD-10-PCS; 2020-04-11)
PROC: 0JH60WZ Insertion of Totally Implantable Vascular Access Device into Chest Subcutaneous Tissue and Fascia, Open Approach (ICD-10-PCS; 2020-04-18)
PROC: 02HV33Z Insertion of Infusion Device into Superior Vena Cava, Percutaneous Approach (ICD-10-PCS; 2020-04-18)
PROC: B518ZZA Fluoroscopy of Superior Vena Cava, Guidance (ICD-10-PCS; 2020-04-18)
DX: C18.5 Malignant neoplasm of splenic flexure (principal); J96.00 Acute respiratory failure, unspecified whether with hypoxia or hypercapnia; K63.1 Perforation of intestine (nontraumatic); D62 Acute posthemorrhagic anemia; E87.2 Acidosis; E44.0 Moderate protein-calorie malnutrition; C77.2 Secondary and unspecified malignant neoplasm of intra-abdominal lymph nodes; D63.0 Anemia in neoplastic disease; Z20.828 Contact with and (suspected) exposure to other viral communicable diseases; F17.210 Nicotine dependence, cigarettes, uncomplicated; E87.6 Hypokalemia; E11.65 Type 2 diabetes mellitus with hyperglycemia; K64.8 Other hemorrhoids; K62.1 Rectal polyp; E83.42 Hypomagnesemia; E83.39 Other disorders of phosphorus metabolism; E83.51 Hypocalcemia; E11.649 Type 2 diabetes mellitus with hypoglycemia without coma; Z28.21 Immunization not carried out because of patient refusal; Z90.49 Acquired absence of other specified parts of digestive tract; Z68.21 Body mass index [BMI] 21.0-21.9, adult
CPT/HCPCS: 36415; 36416; 36430; 71045; 74018; 74177; 76000; 80048; 80053; 81003; 81015; 82378; 82728; 82805; 83036; 83540; 83550; 83605; 83735; 84100; 84134; 85007; 85025; 85027; 85610; 85730; 86301; 86850; 86900; 86901; 87040; 87635; 88304; 88305; 88309; 88361; 88374; 93005; 94002; 94003; 96365; 96366; 96367; 96375; C1788; C9113; J0690; J0692; J0694; J1200; J1642; J1650; J1815; J1885; J1940; J2001; J2060; J2270; J2370; J2704; J3010; J3475; J3480; J3490; J7050; P9016; P9045; Q0163; Q9967; S0028; U0003

== ENCOUNTER 2020-06-27 11:44 | Day surgery (SDC) | payer OTHER ==
[~2020-06-27 11:44] MED LIST changes: +DEXTROSE 5% IVPB SCH; +FLUOROURACIL IVPB SCH; -Iopamidol-370 76% 500 ML 1 ML ONE; +LEUCOVORIN CALCIUM IVPB SCH; +OXALIPLATIN IVPB SCH; +PALONOSETRON HCL 0.05 MG/ML 5 ML VIAL IVP SCH; +Palonosetron HCl 0.25 MG in Sodium Chloride 0.9% 50 ML IVPB SCH; +SODIUM CHLORIDE 0.9% IVPB SCH; +WATER IVPB SCH
[2020-06-27] MEDS ORDERED: Sodium Chloride 0.9% 20 ML ONE (12:00)
[2020-06-27 12:17] VITALS: BP 133/77; TEMP 98.2
== END 2020-06-27 15:25 | disposition home or self-care (01) ==
LOC: ONC/OP 11:44
PROVIDERS: ATTEND Internal Medicine Hematology & Oncology
DX: Z51.11 Encounter for antineoplastic chemotherapy (principal); C18.8 Malignant neoplasm of overlapping sites of colon; D50.8 Other iron deficiency anemias
CPT/HCPCS: 96367; 96375; 96413; 96415; 96417; J0640; J1100; J2469; J7070; J9190; J9263

== ENCOUNTER 2020-06-27 16:50 | Emergency (ER) | payer OTHER, SELFPAY ==
[2020-06-27 17:49] LABS: Base Excess-Venous -3.2 mmol/L (-2.0 to 3.0); Bicarbonate (HCO3v) 19.5 mmol/L (22.0-28.0); CO2 Tension (PvCO2) 26.7 mmHg (40.0-50.0); Calcium, Ionized 1.07 mmol/L (1.15-1.33); Chloride 97 mmol/L (98-107); Hemoglobin - Calc 10.1 g/dL (14.0-18.0); Potassium 4.8 mmol/L (3.5-5.1); Sodium 127 mmol/L (138-145); T. Carbon Dioxide 20.3 mmol/L (22.0-28.0); vO2 Saturation-calc 52.5 % (60.0-85.0)
[2020-06-27 18:11] LABS: Bacteria/HPF None Seen HPF (None Seen); Bilirubin Negative (Negative); Blood, Urine Negative (Negative); Clarity Clear (Clear); Glucose, Urine (Dipstick) Greater than 1000 mg/dL (Negative); Ketone, Urine Negative (Negative); Leukocyte Negative Leu/uL (Negative); Nitrite Negative (Negative); Protein, Urine (Dipstick) 70 mg/dL (Neg-Trace); RBC/HPF 0-3 HPF (0-3); Specific Gravity, Urine 1.026 (1.002-1.036); Squamous Epithelial None Seen HPF (0-3); Urobilinogen Normal mg/dL (Less than 2); WBC/HPF None Seen HPF (0-3); pH, Urine 5.5 (5.0-9.0)
[2020-06-27 18:11] LABS: #Lymphocytes 0.8 thou/uL (1.20-3.40); #Monocytes 0.1 thou/uL (0.11-0.59); #Neutrophils 11.7 thou/uL (1.40-6.50); %Basophils 0.2 % (0.0-1.0); %Eosinophils 0.1 % (0.0-10.0); %Monocytes 0.8 % (0.0-10.0); %Neutrophils 92.9 % (42.0-75.0); Hemoglobin 9.1 g/dL (14.0-18.0); Mean Corpuscular HGB CONC 30.1 g/dL (32.0-36.0); Mean Corpuscular Hemoglobin 20.6 pg (27.0-31.0); Mean Corpuscular Volume 68.5 fL (78.0-98.0); Mean Platelet Volume 7.9 fL (7.4-10.4); Platelet Count 463 thou/uL (130-400); RBC Distribution Width 15.4 % (11.5-14.5); Red Blood Cell (RBC) Count 4.42 mill/uL (4.70-6.10); White Blood Cell (WBC) Count 12.6 thou/uL (4.8-10.8)
[2020-06-27 18:40] LABS: ALT (SGPT) 16 U/L (8-55); AST (SGOT) 10 U/L (5-34); Albumin 3.7 g/dL (3.5-5.0); Alkaline Phosphatase 227 U/L (40-110); Anion Gap 15 mmol/L (10-20); BUN (Urea Nitrogen) 25 mg/dL (8.4-25.7); Bilirubin, Total 0.2 mg/dL (0.2-1.2); Calc. Creatinine Clearance 0 mL/min (70-130); Calcium 9.4 mg/dL (7.8-10.44); Carbon Dioxide 20 mmol/L (22-29); Chloride 93 mmol/L (98-107); Globulin 4.1 g/dL (2.4-3.5); Glucose 613 mg/dL (70-105); Potassium 4.9 mmol/L (3.5-5.1); Protein, Total 7.8 g/dL (6.0-8.3); Sodium 123 mmol/L (136-145)
[2020-06-27 18:53] LABS: Anisocytosis SLIGHT = 6-15 cells (100X) (0-5/hpf); Hypochromia SLIGHT = 6-15 cells (100X) (0-5/hpf); MDiff Complete? YES; Microcytosis SLIGHT = 6-15 cells (100X) (0-5/hpf); Ovalocytes SLIGHT = 2-5 cells (100X) (0-1/hpf); Platelet Morphology Comment Appears Increased; Polychromasia SLIGHT = 2-3 cells (100X) (0-2/hpf); Target Cells SLIGHT = 2-5 cells (100X) (0-1/hpf)
[2020-06-27] MEDS ORDERED: PRE FILLED SC SCH (19:00)
[2020-06-27] MEDS ORDERED: INSULIN GLARGINE SC SCH (19:00)
== END 2020-06-27 20:30 | disposition home or self-care (01) ==
LOC: ERS 16:50
DX: E11.65 Type 2 diabetes mellitus with hyperglycemia (principal); E86.0 Dehydration; Z79.899 Other long term (current) drug therapy; F17.210 Nicotine dependence, cigarettes, uncomplicated
CPT/HCPCS: 36415; 36416; 81003; 81015; 82010; 82330; 82803; 83930; 85025; 99284; J1815

== ENCOUNTER 2020-07-12 11:34 | Day surgery (SDC) | payer OTHER ==
[2020-07-12] MEDS ORDERED: Sodium Chloride 0.9% 20 ML ONE (12:11)
[2020-07-12 12:43] VITALS: BP 135/73; TEMP 97.9
== END 2020-07-12 16:27 | disposition home or self-care (01) ==
LOC: ONC/OP 11:34
PROVIDERS: ATTEND Internal Medicine Hematology & Oncology
DX: Z51.11 Encounter for antineoplastic chemotherapy (principal); C18.8 Malignant neoplasm of overlapping sites of colon; D50.8 Other iron deficiency anemias
CPT/HCPCS: 96367; 96375; 96413; 96415; 96416; 96417; J0640; J1100; J2469; J7070; J9190; J9263

== ENCOUNTER 2020-07-25 10:59 | Day surgery (SDC) | payer OTHER ==
[~2020-07-25 10:59] MED LIST changes: +Ferumoxytol (NON ERSD) 510 MG in Sodium Chloride 0.9% 250 ML 150 ML IVPB SCH; -Palonosetron HCl 0.25 MG in Sodium Chloride 0.9% 50 ML IVPB SCH
[2020-07-25 11:41] VITALS: BP 160/76; TEMP 97.8
[2020-07-25 12:09] LABS: ALT (SGPT) 20 U/L (8-55); AST (SGOT) 12 U/L (5-34); Albumin 3.1 g/dL (3.5-5.0); Alkaline Phosphatase 201 U/L (40-110); Anion Gap 11 mmol/L (10-20); BUN (Urea Nitrogen) 7 mg/dL (8.4-25.7); Bilirubin, Total Less than 0.2 mg/dL (0.2-1.2); Calc. Creatinine Clearance 83 mL/min (70-130); Calcium 8.3 mg/dL (7.8-10.44); Carbon Dioxide 24 mmol/L (22-29); Chloride 100 mmol/L (98-107); Globulin 3.1 g/dL (2.4-3.5); Glucose 359 mg/dL (70-105); Protein, Total 6.2 g/dL (6.0-8.3); Sodium 132 mmol/L (136-145)
[2020-07-25 12:13] LABS: Potassium 2.9 mmol/L (3.5-5.1)
== END 2020-07-25 15:21 | disposition home or self-care (01) ==
LOC: ONC/OP 10:59
PROVIDERS: ATTEND Internal Medicine Hematology & Oncology
DX: Z51.11 Encounter for antineoplastic chemotherapy (principal); C18.8 Malignant neoplasm of overlapping sites of colon; D50.8 Other iron deficiency anemias
CPT/HCPCS: 80053; 96367; 96375; 96413; 96415; 96417; J0640; J1100; J7050; J7070; J9190; J9263; Q0138

== ENCOUNTER 2020-08-08 11:01 | Day surgery (SDC) | payer OTHER ==
[~2020-08-08 11:01] MED LIST changes: +Palonosetron HCl 0.25 MG in Sodium Chloride 0.9% 50 ML IVPB SCH
[2020-08-08 11:45] VITALS: BP 125/72; TEMP 98.3
== END 2020-08-08 15:47 | disposition home or self-care (01) ==
LOC: ONC/OP 11:01
PROVIDERS: ATTEND Internal Medicine Hematology & Oncology
DX: Z51.11 Encounter for antineoplastic chemotherapy (principal); C18.8 Malignant neoplasm of overlapping sites of colon; D50.8 Other iron deficiency anemias
CPT/HCPCS: 96367; 96375; 96413; 96415; 96416; 96417; J0640; J1100; J7050; J7070; J9190; J9263; Q0138

== ENCOUNTER 2020-08-15 11:20 | Day surgery (SDC) | payer OTHER ==
[~2020-08-15 11:20] MED LIST changes: -DEXTROSE 5% IVPB SCH; -FLUOROURACIL IVPB SCH; -LEUCOVORIN CALCIUM IVPB SCH; -OXALIPLATIN IVPB SCH; -PALONOSETRON HCL 0.05 MG/ML 5 ML VIAL IVP SCH; -Palonosetron HCl 0.25 MG in Sodium Chloride 0.9% 50 ML IVPB SCH; -SODIUM CHLORIDE 0.9% IVPB SCH; -WATER IVPB SCH
[2020-08-15] MEDS ORDERED: Sodium Chloride 0.9% 30 ML ONE (11:56)
[2020-08-15 12:39] VITALS: BP 126/62; TEMP 97.9
[2020-08-15 12:53] LABS: #Eosinphils 0.2 thou/uL (0.0-0.7); #Lymphocytes 1.4 thou/uL (1.20-3.40); #Monocytes 0.4 thou/uL (0.11-0.59); #Neutrophils 8.8 thou/uL (1.40-6.50); %Basophils 0.2 % (0.0-1.0); %Eosinophils 2.2 % (0.0-10.0); %Lymphocytes 12.5 % (21.0-51.0); %Neutrophils 81.1 % (42.0-75.0); Hemoglobin 8.7 g/dL (14.0-18.0); Mean Corpuscular HGB CONC 30.8 g/dL (32.0-36.0); Mean Corpuscular Hemoglobin 22.9 pg (27.0-31.0); Mean Corpuscular Volume 74.2 fL (78.0-98.0); Mean Platelet Volume 7.9 fL (7.4-10.4); Platelet Count 419 thou/uL (130-400); RBC Distribution Width 24.3 % (11.5-14.5); Red Blood Cell (RBC) Count 3.79 mill/uL (4.70-6.10); White Blood Cell (WBC) Count 10.9 thou/uL (4.8-10.8)
[2020-08-15 13:18] LABS: Anisocytosis MODERATE=16-30 cells (100X) (0-5/hpf); Hypochromia SLIGHT = 6-15 cells (100X) (0-5/hpf); MDiff Complete? YES; Microcytosis SLIGHT = 6-15 cells (100X) (0-5/hpf); Platelet Morphology Comment Appears Increased; Polychromasia SLIGHT = 2-3 cells (100X) (0-2/hpf)
== END 2020-08-15 12:47 | disposition home or self-care (01) ==
LOC: ONC/OP 11:20
PROVIDERS: ATTEND Internal Medicine Hematology & Oncology
DX: D50.8 Other iron deficiency anemias (principal); C18.8 Malignant neoplasm of overlapping sites of colon
CPT/HCPCS: 85025; 96365; J1642; J7050; Q0138

== ENCOUNTER 2020-08-22 11:34 | Day surgery (SDC) | payer OTHER ==
[~2020-08-22 11:34] MED LIST changes: +DEXTROSE 5% IVPB SCH; +FLUOROURACIL IVPB SCH; -Ferumoxytol (NON ERSD) 510 MG in Sodium Chloride 0.9% 250 ML 150 ML IVPB SCH; +LEUCOVORIN CALCIUM IVPB SCH; +OXALIPLATIN IVPB SCH; +PALONOSETRON HCL 0.05 MG/ML 5 ML VIAL IVP SCH; +Palonosetron HCl 0.25 MG in Sodium Chloride 0.9% 50 ML IVPB SCH; +SODIUM CHLORIDE 0.9% IVPB SCH; +Sodium Chloride 0.9% 20 ML ONE; +WATER IVPB SCH
[2020-08-22 12:23] VITALS: BP 138/83; TEMP 98.1
== END 2020-08-22 15:44 | disposition home or self-care (01) ==
LOC: ONC/OP 11:34
PROVIDERS: ATTEND Internal Medicine Hematology & Oncology
DX: Z51.11 Encounter for antineoplastic chemotherapy (principal); C18.8 Malignant neoplasm of overlapping sites of colon; D50.8 Other iron deficiency anemias
CPT/HCPCS: 96367; 96375; 96413; 96415; 96416; 96417; J0640; J1100; J2469; J7070; J9190; J9263

== ENCOUNTER 2020-09-05 11:12 | Day surgery (SDC) | payer OTHER, SELFPAY ==
[2020-09-05] MEDS ORDERED: Sodium Chloride 0.9% 20 ML ONE (11:22)
[2020-09-05] MEDS ORDERED: WATER IVPB SCH ×2 (11:30)
[2020-09-05] MEDS ORDERED: OXALIPLATIN IVPB SCH (11:30)
[2020-09-05] MEDS ORDERED: LEUCOVORIN CALCIUM IVPB SCH (11:30)
[2020-09-05] MEDS ORDERED: SODIUM CHLORIDE 0.9% IVPB SCH (11:30)
[2020-09-05] MEDS ORDERED: PALONOSETRON HCL 0.05 MG/ML 5 ML VIAL IVP SCH (11:30)
[2020-09-05] MEDS ORDERED: DEXTROSE 5% IVPB SCH ×2 (11:30)
[2020-09-05] MEDS ORDERED: FLUOROURACIL IVPB SCH (11:30)
== END 2020-09-05 15:46 | disposition home or self-care (01) ==
LOC: ONC/OP 11:12
PROVIDERS: ATTEND Internal Medicine Hematology & Oncology
DX: Z51.11 Encounter for antineoplastic chemotherapy (principal); C18.8 Malignant neoplasm of overlapping sites of colon; D50.8 Other iron deficiency anemias
CPT/HCPCS: 96367; 96375; 96413; 96415; 96416; 96417; J0640; J1100; J2469; J7070; J9190; J9263

== ENCOUNTER 2020-09-19 12:08 | Day surgery (SDC) | payer OTHER, SELFPAY ==
[~2020-09-19 12:08] MED LIST changes: -Sodium Chloride 0.9% 20 ML ONE
[2020-09-19] MEDS ORDERED: Sodium Chloride 0.9% 20 ML ONE (12:38)
[2020-09-19 12:42] VITALS: BP 154/81; TEMP 97.5
== END 2020-09-19 16:36 | disposition home or self-care (01) ==
LOC: ONC/OP 12:08
PROVIDERS: ATTEND Internal Medicine Hematology & Oncology
DX: Z51.11 Encounter for antineoplastic chemotherapy (principal); C18.8 Malignant neoplasm of overlapping sites of colon; D50.8 Other iron deficiency anemias
CPT/HCPCS: 96367; 96375; 96413; 96415; 96416; 96417; J0640; J1100; J2469; J7070; J9190; J9263

== ENCOUNTER 2020-10-03 09:58 | Day surgery (SDC) | payer OTHER ==
[~2020-10-03 09:58] MED LIST changes: +DEXAMETHASONE SOD PHOSPHATE IVPB SCH; +Palonosetron HCl 0.25 MG in Dextrose 5% in Water 50 ML IVPB SCH; -Palonosetron HCl 0.25 MG in Sodium Chloride 0.9% 50 ML IVPB SCH; -SODIUM CHLORIDE 0.9% IVPB SCH
[2020-10-03] MEDS ORDERED: Sodium Chloride 0.9% 20 ML ONE (10:08)
[2020-10-03 10:10] VITALS: BP 148/88; TEMP 97.6
== END 2020-10-03 13:05 | disposition home or self-care (01) ==
LOC: ONC/OP 09:58
PROVIDERS: ATTEND Internal Medicine Hematology & Oncology
DX: Z51.11 Encounter for antineoplastic chemotherapy (principal); C18.8 Malignant neoplasm of overlapping sites of colon; D50.8 Other iron deficiency anemias
CPT/HCPCS: 96367; 96375; 96413; 96415; 96416; 96417; J0640; J1100; J2469; J7070; J9190; J9263

== ENCOUNTER 2020-10-17 09:54 | Day surgery (SDC) | payer OTHER ==
[2020-10-17] MEDS ORDERED: Sodium Chloride 0.9% 20 ML ONE (10:17)
[2020-10-17 12:04] VITALS: BP 136/78; TEMP 97.6
== END 2020-10-17 14:22 | disposition home or self-care (01) ==
LOC: ONC/OP 09:54
PROVIDERS: ATTEND Internal Medicine Hematology & Oncology
DX: Z51.11 Encounter for antineoplastic chemotherapy (principal); C18.8 Malignant neoplasm of overlapping sites of colon; D50.8 Other iron deficiency anemias
CPT/HCPCS: 96367; 96375; 96413; 96415; 96416; 96417; J0640; J1100; J2469; J7070; J9190; J9263

== ENCOUNTER 2020-10-31 10:35 | Day surgery (SDC) | payer OTHER ==
[2020-10-31] MEDS ORDERED: Sodium Chloride 0.9% 30 ML ONE (10:36)
[2020-10-31 11:27] LABS: ALT (SGPT) 24 U/L (8-55); AST (SGOT) 23 U/L (5-34); Albumin 3.4 g/dL (3.5-5.0); Alkaline Phosphatase 107 U/L (40-110); Anion Gap 12 mmol/L (10-20); BUN (Urea Nitrogen) 20 mg/dL (8.4-25.7); Bilirubin, Total Less than 0.2 mg/dL (0.2-1.2); Calc. Creatinine Clearance 92 mL/min (70-130); Calcium 7.9 mg/dL (7.8-10.44); Carbon Dioxide 17 mmol/L (22-29); Chloride 109 mmol/L (98-107); Globulin 2.6 g/dL (2.4-3.5); Glucose 103 mg/dL (70-105); Sodium 134 mmol/L (136-145)
[2020-10-31 11:33] VITALS: BP 131/70; TEMP 98.2
== END 2020-10-31 14:53 | disposition home or self-care (01) ==
LOC: ONC/OP 10:35
PROVIDERS: ATTEND Internal Medicine Hematology & Oncology
DX: Z51.11 Encounter for antineoplastic chemotherapy (principal); C18.8 Malignant neoplasm of overlapping sites of colon; D50.8 Other iron deficiency anemias
CPT/HCPCS: 80053; 96367; 96375; 96413; 96415; 96416; 96417; J0640; J1100; J2469; J7070; J9190; J9263

== ENCOUNTER 2020-11-14 10:26 | Day surgery (SDC) | payer OTHER ==
[~2020-11-14 10:26] MED LIST changes: -Palonosetron HCl 0.25 MG in Dextrose 5% in Water 50 ML IVPB SCH
[2020-11-14] MEDS ORDERED: Sodium Chloride 0.9% 20 ML ONE (10:53)
[2020-11-14 11:27] VITALS: BP 119/78; TEMP 97.8
== END 2020-11-14 14:05 | disposition home or self-care (01) ==
LOC: ONC/OP 10:26
PROVIDERS: ATTEND Internal Medicine Hematology & Oncology
DX: Z51.11 Encounter for antineoplastic chemotherapy (principal); C18.8 Malignant neoplasm of overlapping sites of colon; D50.8 Other iron deficiency anemias
CPT/HCPCS: 96367; 96376; 96413; 96415; 96416; 96417; J0640; J1100; J2469; J7070; J9190; J9263

== ENCOUNTER 2020-11-28 10:31 | Day surgery (SDC) | payer OTHER ==
[~2020-11-28 10:31] MED LIST changes: -PALONOSETRON HCL 0.05 MG/ML 5 ML VIAL IVP SCH; +Palonosetron HCl 0.25 MG in Dextrose 5% in Water 50 ML IVPB SCH
[2020-11-28] MEDS ORDERED: Sodium Chloride 0.9% 20 ML ONE (10:42)
[2020-11-28 10:59] VITALS: BP 116/69; TEMP 98
[2020-11-28] MEDS ORDERED: PALONOSETRON HCL 0.05 MG/ML 5 ML VIAL IVP SCH (11:30)
== END 2020-11-28 14:55 | disposition home or self-care (01) ==
LOC: ONC/OP 10:31
PROVIDERS: ATTEND Internal Medicine Hematology & Oncology
DX: Z51.11 Encounter for antineoplastic chemotherapy (principal); C18.8 Malignant neoplasm of overlapping sites of colon
CPT/HCPCS: 96367; 96375; 96413; 96415; 96416; 96417; J0640; J1100; J2469; J7070; J9190; J9263

== ENCOUNTER → 2023-11-28 | Day surgery (SDC) | payer OTHER ==
[~2023-11-28] MED LIST changes: -DEXAMETHASONE SOD PHOSPHATE IVPB SCH; -DEXTROSE 5% IVPB SCH; -FLUOROURACIL IVPB SCH; -LEUCOVORIN CALCIUM IVPB SCH; +Lidocaine 1% PF 5 ML VIAL ONE; -OXALIPLATIN IVPB SCH; -Palonosetron HCl 0.25 MG in Dextrose 5% in Water 50 ML IVPB SCH; +Sodium Bicarbonate 2.5 MEQ/5 ML SDV ONE; -WATER IVPB SCH
[2023-11-28 08:34] LABS: INR-International Normal Ratio 0.9; Prothrombin Time 12.5 sec (12.0-14.7)
[2023-11-28 08:35] LABS: PTT 31.8 sec (22.9-36.1)
[2023-11-28 08:50] LABS: #Basophils 0.05 10x3/uL (0.0-0.2); %Basophils 0.4 % (0.0-1.0); %Eosinophils 2.7 % (0.0-10.0); %Lymphocytes 12.7 % (21.0-51.0); %Monocytes 6.5 % (0.0-10.0); %Neutrophils 75.9 % (42.0-75.0); Hematocrit 31.3 % (42.0-52.0); Hemoglobin 9.5 g/dL (14.0-18.0); Mean Corpuscular HGB CONC 30.4 g/dL (32.0-36.0); Mean Corpuscular Hemoglobin 25.5 pg (27.0-31.0); Mean Corpuscular Volume 84.1 fL (78.0-98.0); Mean Platelet Volume 9.2 fL (7.4-10.4); Platelet Count 321 10x3/uL (130-400); RBC Distribution Width 24.5 % (11.5-14.5); Red Blood Cell (RBC) Count 3.72 mill/uL (4.70-6.10)
[2023-11-28 08:57] LABS: Anisocytosis SLIGHT = 6-15 cells HPF (0-5); Burr Cells SLIGHT = 2-5 cells HPF (0-1); Elliptocytes SLIGHT = 2-5 cells HPF (0-1); Platelet Adequacy Comment Platelets Normal; Polychromasia MODERATE = 3-4 cells HPF (0-2); Schistocytes SLIGHT = 2-5 cells HPF (0-1); Spherocytes SLIGHT = 1-5 cells HPF (None Seen)
== END ==
LOC: ULT 07:39
PROVIDERS: ATTEND Internal Medicine Hematology & Oncology
PROC: 0FB23ZX Excision of Left Lobe Liver, Percutaneous Approach, Diagnostic (ICD-10-PCS; principal; 2023-11-28)
DX: C18.8 Malignant neoplasm of overlapping sites of colon (principal); R16.0 Hepatomegaly, not elsewhere classified; R97.0 Elevated carcinoembryonic antigen [CEA]; E11.65 Type 2 diabetes mellitus with hyperglycemia; R63.4 Abnormal weight loss; E11.42 Type 2 diabetes mellitus with diabetic polyneuropathy; F17.210 Nicotine dependence, cigarettes, uncomplicated; Z98.890 Other specified postprocedural states; Z90.49 Acquired absence of other specified parts of digestive tract
CPT/HCPCS: 36415; 47000; 76942; 85025; 85610; 85730; 88307; 88333; 88334; 88341; 88342

== ENCOUNTER 2024-04-26 09:54 | Outpatient (CLI) | payer OTHER ==
[2024-04-26] MEDS ORDERED: Iopamidol 370 76% 100 ML VIAL ONE (10:43)
== END 2024-04-26 09:55 | disposition home or self-care (01) ==
LOC: CT 09:54
PROVIDERS: ATTEND Internal Medicine Hematology & Oncology
DX: C18.9 Malignant neoplasm of colon, unspecified (principal); C78.7 Secondary malignant neoplasm of liver and intrahepatic bile duct; R16.0 Hepatomegaly, not elsewhere classified; R59.0 Localized enlarged lymph nodes
CPT/HCPCS: 74177